=== PATIENT | female | born 1950 | race Caucasian/White ===

== ENCOUNTER → 2016-11-23 | Outpatient (CLI) | payer OTHER ==
[~2016-11-23] MED LIST: ACET-1311 PO; ANAS1TAB19 PO; ASPI81TA25 PO; ATOR10TA88 PO; CALCTAB5 PO; CLOP1TAB15 PO; GABA400C PO; LISI40TA PO; METF-383 PO; METO50TA7 PO; MULT-580; NIAC1TAB52 PO; PIOG1TAB25 PO; [UNRECOGNIZED DRUG - CODE] PO
[2016-11-23 12:55] VITALS: BP 168/71; PULSE 58; TEMP 37.1; O2SAT 93
--- NOTE | 2016-11-23 14:23 | Radiation Oncology Follow-Up ---
Radiation Oncology Follow-Up Date of Visit Nov 23, 2016. Reason For Visit Annual follow-up Radiation Completion Date finished 04-12-2014 Diagnosis (1) Breast cancer, stage 2 Status: Resolved Onset Date: 09/11/2013 Stage: ll Permanent Comment: Self detected right breast mass Status post biopsy 09/11/2013 revealing invasive ductal carcinoma Status post right partial mastectomy and sentinel lymph node biopsy 10/19/2013 Stage [id number] Systemic chemotherapy Status post completion of radiation therapy 04/12/2014 received 6120 cGy Last Edited By: Micki Rivero on Nov 19, 2014 15:03 Interim History She's been doing well over this past year. She has noted no changes to her breast. There've been no masses or tenderness no change of the axilla. She has noticed no swelling of her arm. She is up-to-date on mammography. She had a PET scan 08/30/2016 showed stable tiny pulmonary nodules, appearing to representing granulomas. Mediastinal lymph node has increased size since the previous examination however, the patient has had interim mediastinal internal ostomy and coronary artery bypass graft. This increase in lymphadenopathy could be reflective to this process. Continue follow-up. She had a mammogram on 09/08/2016. This showed no mammographic evidence of malignancy bilaterally recheck in 12 months. BI-RADS Category 2. She did undergo an aortic valve replacement. She has recuperated well post operatively. She unfortunately continues to have dyspnea. She stated that the surgery was not as good of a success as she had hoped for. Allergies Coded Allergies: Hydrochlorothiazide w/Triamterene (Unverified Allergy, Intermediate, FACIAL EDEMA, 10/12/13) Simvastatin (Verified Allergy, Mild, 07/25/09) Sulfa Drugs (Verified Allergy, Mild, 07/25/09) White Fish (Verified Allergy, Mild, 12/26/06) Home Medications Scheduled Anastrozole (Arimidex), 1 MG PO DAILY Aspirin (Aspir-Low), 1 TAB PO DAILY Atorvastatin (Lipitor), 10 MG PO HS Calcium (Caltrate), 600 MG PO DAILY Gabapentin (Neurontin), 400 MG PO TID Lisinopril (Zestril), 40 MG PO DAILY Metformin Hcl (Glucophage), 850 MG PO TID Metoprolol Succ (Toprol Xl) (Toprol-Xl), 50 MG PO BID Multiple Vitamins W/ Minerals (Hair/Skin/Nails), DAILY Niacin (Antihyperlipidemic) (Niacin Er), 250 MG PO HS Pioglitazone Hcl (Pioglitazone Hcl), 15 MG PO DAILY Torsemide (Demadex), 5 MG PO DAILY Scheduled PRN Acetaminophen (Tylenol), 650 MG PO Q4H PRN for Pain Review of Systems Gastrointestinal: Symptoms: WNL Oral: Symptoms: No Problems Respiratory: Symptoms: SOB With Exertion Other Respiratory: No change for pt Urinary: Symptoms: Nocturia Comments: nocturia times 1 - 2 Skin: Symptoms: No Problems Breast: Right Upper Arm Measurement: 48.0 Right Mid Arm Measurement: 32.5 Right Wrist Measurement: 18.5 Left Upper Arm Measurement: 49.0 Left Mid Arm Measurement: 33.0 Left Wrist Measurement: 19.0 Arm Dominence: Right Patient Cosmetic Evaluation: Excellent Staff Cosmetic Evalaluation: Excellent Physical Exam Vital Signs Date Time Temp Pulse Resp B/P (MAP) Pulse Ox O2 Delivery O2 Flow Rate FiO2 11/23/16 12:55 37.1 58 18 168/71 93 Pain: Pain Onset: 09/11/15 Pain Duration: constant Side: Bilateral Pain Location: None Patient Pain Scale: 0 - 10 Initial Pain Intensity: 0.0 Pain Description: Sharp, Aching Additional Comments: PT three times per week Fatigue: None General Appearance: no apparent distress Eyes: normal inspection, EOMI ENT: normal ENT inspection, hearing grossly normal Neck: no adenopathy, thyroid normal Respiratory/Chest: lungs clear, no respiratory distress, no accessory muscle use Breast: Breast examination reveals well-healed incisions of the right breast. There are mild fibrous changes in the area of the incision. There are no masses or tenderness and no axillary adenopathy. Using the [place] score cosmesis she has a good outcome. Left breast showed no masses or tenderness no axillary adenopathy. Cardiovascular: regular rate, rhythm, no gallop, + systolic murmur (2/6 heard best at the aortic area) Neurologic/Psychiatric: no motor/sensory deficits, alert, normal mood/affect Skin: warm/dry Additional Studies Mammography and PET scan as reviewed above. Assessment & Plan Plan: Continue annual mammography. Continue regular follow-up with medical oncology and her primary care physician. We asked her to return to our office in 1 year. She will call if she has any questions or concerns in the interim. Total Time In Follow-Up I spent 20 minutes speaking to the patient performing examination. I said 15 minutes reviewing information in completing this note. Copy To Radha Renee MD; Devora Pinto M.D.; Howard Ingram M.D. Problem Qualifiers (1) Breast cancer, stage 2: Laterality: right Qualified Codes: C50.911 - Malignant neoplasm of unspecified site of right female breast
== END | disposition home or self-care (01) ==
LOC: C.ONC 12:39
PROVIDERS: ATTEND Physician Assistant Medical
DX: Z08 Encounter for follow-up examination after completed treatment for malignant neoplasm (principal); Z92.3 Personal history of irradiation; Z85.3 Personal history of malignant neoplasm of breast

== ENCOUNTER → 2017-01-24 | Outpatient (CLI) | payer OTHER ==
[~2017-01-24] MED LIST changes: -CLOP1TAB15 PO
--- NOTE | 2017-01-25 06:36 | PAP/PSG TECHNICIAN REPORT ---
[facility] Clam Shucking Machine Tender Polysomnogram Report Study name: None Report date: 01/25/2017 Study date: 01/24/2017 Referring Physician: Name: TORRI ECHEVARRIA Interpreting Physician: Olena Gonzalez M.D. Date of : 1950 Clam Shucking Machine Tender: JAMA Holloway. Sex: Female Age: 67 StudyType: PSG Weight: 2257 lbs 15.5 inches Height: 67 years, Height 5' 2.5" Neck Circum: BMI: 406.19 Medications: LOPRESSOR 50 MG, ACTOS 15 MG, LIPITOR 10 MG, PRINIVIL 5 MG, ARIMIDEX 1 MG, NIACIN ER 250 MG, NEURONTIN 400 MG, AMOXIL 500 MG, DEMADEX 5 MG, GLUCOPHAGE 850 MG, TYLENOL 325 MG Patient History PATIENT HAS HISTORY OF SOB, LOUD SNORING AND NOCTURIA. 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 SHE IS HERE TODAY FOR AN EVALUATION OF ASHLEY. ESS = 3 RM 7 Parameters Monitored NPSG: E1-M2, E2-M1, Fp1-M2, Fp2-M1, F3-M2, F4-M2, F4-M1, C3-M2, C4-M2, C4-M1, O1-M2, O2-M2, O2-M1, T3-M2, T4-M1, P3-M2, P4-M1, CHIN1, CHIN2, HR, EKG, Legs, PFLOW, SNOR, FLOW, CFLOW, Tidal Volume, THOR, ABDO, SpO2, PLTH, CPRESS, ETCO2 Wave, ETCO2, pH Sleep Architecture Sleep Stages Time at Lights Off 10:21:33 PM STAGES Time (min.) TST (%) Time at Lights On 5:13:33 AM Wake 88.0 -- Total Recording Time (TRT) 411.50 min. N1 16.5 5 Total Sleep Period (TSP) 355.0 min. N2 242.5 75 Total Sleep Time (TST) 323.5min. N3 8.5 3 Awake Time 88.0 min. REM 56.0 17 Wake after Sleep Onset 42.5 min. Sleep Efficiency (SE) 79 % Sleep Onset Latency (CHAIM) 46.0 min. Number of Stage 1 Shifts None Awakenings 19 Stage Changes 80 Number of REM periods 4 REM 56.0 17 REM Latency 63.0 min. NREM 267.5 83 Body Position Analysis Supine Right Left Side Prone Vertical Total Sleep Time (min.) 45.0 0.0 323.5 323.50 0.0 0.0 Total Sleep Time (%) 0% 0% 100% 100 0% N/A% Total Sleep Time REM (min.) 0.0 0.0 56.0 None 0.0 0.0 Total Sleep Time NREM (min.) 0.0 0.0 267.5 None 0.0 0.0 Intermittent Wake (min.) 45.0 0.0 43.0 None 0.0 0.0 Total Sleep Period (%) 0% None None None None None Arousals Myoclonus (PLM) * Events Count Index Events Count Index Spontaneous 43 8 Events Awake (PLMW) 55 37.5 Respiratory 5 0.9 Events Asleep w/ Arousal (PLMA) 2 0.4 PLM 2 0 Events Asleep w/o Arousal (PLMS) 29 5.4 Snoring 5 1 Total Asleep 31 5.7 Total 55 10 Total 86 13 Respiratory Analysis * CA OA MA CH H RERA Total Count 0 0 0 0 45 1 45 Index 0.0 0.0 0.0 0 8.3 0 8.5 Mean Duration 0.0 0.0 0.0 0.00 17.4 16.4 17.4 Longest Duration 0.0 0.0 0.0 0.00 0.0 16.4 32.5 Respiratory Event Summary Total Supine ~Supine Right Left Prone REM NREM Apneas Count 0 N/A 0 N/A 0 N/A 0 0 Index 0.0 N/A 0 N/A 0.0 N/A 0 0 Hypopneas (4% Desat) Count 45 N/A 45 N/A 45 N/A 32 13 Index 8.3 N/A 8 N/A 8.3 N/A 34.3 2.9 Apneas & All Hypopneas Count 45 N/A 45 N/A 45 N/A 32 13 Index 8.3 N/A 8 N/A 8 N/A 34.3 2.9 Respiratory Events (Gas And Oil Checker+All Hyp+RERA) Count 45 N/A 46 N/A 46 N/A 32 13 Index 8.5 N/A 9 N/A 8.5 N/A 34.3 3.1 Respiratory Related Arousal Count 5 N/A 5 N/A 5 N/A 2 3 Index 0.9 N/A 1 N/A 1 N/A 2 1 Snoring Analysis Supine Right Left Prone REM NREM Total Snore duration 3.2 min Snores count N/A N/A 212 N/A 40 172 212 Snore mean duration 0.9 Sec Snores index N/A N/A 39 N/A 42.9 38.6 39.3 TST with snoring (%) 1.0% SpO2 Analysis Total REM NREM Awake <50% 0.0 min. 0.0 min. 0.0 min. 0.0 min. 51 - 60% 0.0 min. 0.0 min. 0.0 min. 0.0 min. 61 - 70% 0.5 min. 0.0 min. 0.5 min. 0.0 min. 71 - 80% 3.2 min. 3.0 min. 0.2 min. 0.0 min. 81 - 90% 269.6 min. 37.7 min. 212.6 min. 19.4 min. 91 - 100% 137.1 min. 15.4 min. 54.2 min. 67.5 min. Average 90 88 89 92 Minimum SpO2 61 71 61 85 Desaturation Event Index 6.9 34.3 3.4 0.0 # Desat. Events below 89% 41 29 12 0 Time(%) with Saturation below 89% 22.9 5.7 15.8 1.3 Time(min.) with Saturation below 89% 93.9 23.5 64.9 5.4 Heart Rate Analysis End Tidal CO2 Analysis Min (bpm) Max (bpm) Average (bpm) TSP (mins) % of TSP Awake 59 80 68 Above 55 mmHg 0.0 0.0 NREM 57 86 66 50-55 mmHg 0.0 0.0 REM 58 84 69 45-50 mmHg 59.8 18.5 Overall 57 86 67 40-45 mmHg 257.2 79.5 35-40 mmHg 6.0 1.9 30-35 mmHg 0.5 0.1 Average ETCO2 0.0 Supplemental O2 Values Minimum O2 level: None Value Start Time End Time Clam Shucking Machine Tender Comments Ms. Echevarria slept in the left and supine positions. PVC's noted. Leg movements noted. No bruxism noted. Snoring was noted and scored as a 3 on a scale of 1 through 5. (0=no snoring, 5=snoring loud enough to be heard through a closed door or down the henriquez way) Ms. Echevarria awoke to use the restroom 0 times during the night. Ms. Echevarria stated I did not sleep as well as I do when I am in my own bed. The final report will be interpreted and signed by a sleep physician. The completed physician report will then be placed in the patient medical record. Therapy (cm H2O) 0 TIB (min.) 411.5 TST (min.) 323.5 Sleep Onset (min.) 46.0 REM Onset From Sleep (min.) 63.0 Sleep Efficiency % 79 Wakefulness (%) 21 Wakefulness (min.) 88.0 NREM 1 (%) 5 NREM 1 (min.) 16.5 NREM 2 (%) 75 NREM 2 (min.) 242.5 NREM 3 (%) 3 NREM 3 (min.) 8.5 REM (%) 17 REM (min.) 56.0 # Arousals 55 Arousal Index 10 # Snore 212 Snore Index 39.3 AHI 8.3 AHI Supine N/A AHI Non-Supine 8 NREM AHI 2.9 REM AHI 34.3 RDI 8.5 # Obstructive Apnea 0 # Central Apnea 0 # Mixed Apnea 0 # Hypopneas 45 RERAs 1 Total Respiratory Events 46 Time Below SpO2 89% (min.) 88.4 Mean NREM SpO2 (%) 89 Mean REM SpO2 (%) 88 Mean Sleep SpO2 (%) 89 Min NREM SpO2 (%) 61 Min REM SpO2 (%) 71 Position Supine (min.) 45.0 Position Non-supine (min.) 323.5 LM Index Sleep 5.7 LM Index NREM 6.7 LM Index REM 1.1 Mean Heart Rate (bpm) 67 Min Heart Rate (bpm) 57
--- NOTE | 2017-02-04 08:34 | POLYSOMNOGRAPH REPORT ---
REFERRING PERSON: Dr. Connie Gonzalez. SENIOR COPYWRITER: Michael Carvalho. Ms. Johnson is a 67-year-old female with loud snoring and nocturia. She also has daytime sleepiness. 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 Her O'Brien sleepiness scale score on the evening of this study is 3. Following the technical and digital specifications of the [place] [employer] (AASM) a standard diagnostic polysomnogram was performed monitoring EEG, EOG, EMG (chin and leg deviations), oxygen saturation, body position, digital video, respiratory effort and airflow. The sleep Stage and event scoring was based on the AASM Manual for the Scoring of Sleep and Associated Events 2007 edition. Apneas are defined as a drop in the peak thermal sensor excursion by >90% of baseline for at least 10 seconds. Hypopneas were scored using the 4% oxygen desaturation rule (4A-Medic[employer]) and a decrease in the nasal pressure excursions by >30% of baseline for at least 10 seconds. Respiratory effort-related arousal (RERA's) is defined as a sequence of breaths lasting at least 10 seconds characterized by increasing respiratory effort or flattening of the nasal pressure waveform leading to an arousal from sleep when the sequence of breaths does not meet criteria for an apnea or hypopnea. Apnea Hypopnea index (AHI) is defined as the number of apneas and hypopneas occurring in an hour of sleep. Respiratory disturbance index (RDI) is defined as the number of apneas, hypopneas, and RERA's occurring in an hour of sleep. Ms. Bailey total sleep period time was 355 minutes. Total sleep time was 323.5 minutes. Sleep efficiency was 79%. Latency to sleep onset was 46 minutes with wake after sleep onset of 42.5 minutes. Total non-REM sleep time was 267.5 minutes. She spent 5% of that time in N1 sleep, 75% in N2 sleep and 3% in N3 sleep. REM latency was 63 minutes. Total REM sleep time was 56 minutes or 17% of total sleep time. There were 55 cortical arousals from sleep. Forty-three of these arousals were spontaneous, 5 were due to respiratory events, 2 due to periodic limb movements of sleep and 5 were due to snoring. There were 31 periodic limb movements noted on this test. Limb movement index was 5.7. Limb movement with arousal index was 0.4. There were no central, obstructive or mixed apneas on this test; however, there were 45 hypopnea. Apnea-hypopnea index was 8.3 consistent with mild sleep apnea. REM AHI was 34.3. 212 snoring events were recorded. Total sleep time with snoring was only 1%. Mean saturation was borderline low at 90%. Saturations were as low at 78%. Minimal desaturation recorded 61%, but this was artifact. Saturations were less than 89% for 93.9 minutes of recorded time. This is significant nocturnal hypoxemia. PVCs were noted on EKG monitoring. Heart rates during sleep ranged from a low of 57 beats per minute to a high of 86 beats per minute. End-tidal CO2 was recorded on this test. End-tidal CO2s were between 45 and 50 mmHg for 18.5% of total sleep period time, between 40 and 45 mmHg for 79.5%, between 35 and 40 mmHg for 1.9% and between 30 and 35 mmHg for 0.1% of total sleep period time. IMPRESSION AND PLAN: 67-year-old female with evidence of mild sleep apnea, severe in REM sleep and significant nocturnal hypoxemia on this study. 1. This patient would likely benefit from positive airway pressure therapy. It would in all likelihood improve both apnea and hypoxemia. She should return to the sleep lab for a full night titration and then based on those results be started on equipment at home. A download from her machine can be reviewed in 1 month both to check compliance as well as AHI and further pressure adjustments can occur at that time. 2. Alternatively, this patient could be started on an auto titrating CPAP with pressures of 5-15 cm. A download from her machine can be reviewed in 1 month and then she could be set to optimal pressure. An NPO on optimal pressure can ensure that her hypoxemia resolves with CPAP alone. 3. Should this patient be unwilling or unable to tolerate CPAP therapy, she could be referred to ear, nose and throat or oral surgery/dental medicine (if appropriate) to discuss alternative treatments for sleep disorder breathing. HELADIO
== END | disposition home or self-care (01) ==
LOC: C.NEUR 20:00
PROVIDERS: ATTEND Family Medicine
DX: G47.30 Sleep apnea, unspecified (principal); G47.10 Hypersomnia, unspecified; R06.83 Snoring; E66.01 Morbid (severe) obesity due to excess calories

== ENCOUNTER 2018-11-03 06:18 | Inpatient (IN) ==
--- NOTE | 2018-10-03 10:03 | Anesthesiology Consultation ---
Date of Service October 03, 2018 Assessment & Plan (1) Encounter for pre-operative examination: Chart Review Chart Review: Acceptable Risk for Surgery and Patient seen in Pre Admission Testing Consults Requested none Patient was last seen by Dr. Ratliff (Cardiology) in 05/2018. Per note from that visit, patient was stable but needed to continue to remain active and make good dietary choices. Patient to return there in 6 months (11/2018). Teaching & Discussion Pre-Anesthesia Teaching/Discussion Notes: Instructed NPO after midnight before surgery, except medications with 15 cc of water. Medication instructions provided according to the PAT guidelines. History Surgery Operation Date: 11/03/18 09:50 Proposed Procedures p Right Reverese Total Shoulder Arthroplasty - Juan Prado, Height/Weight Height: 5 ft 2 in Weight: 116.9 kg Allergies Allergy/AdvReac Type Severity Reaction Status Date / Time Dyazide Allergy Intermediate FACIAL Unverified 10/12/13 09:42 EDEMA hydrochlorothiazide Allergy Intermediate FACIAL Verified 09/21/18 10:31 EDEMA,REDNESS triamterene Allergy Intermediate FACIAL Verified 09/21/18 10:31 EDEMA,REDNESS Fish Containing Products Allergy Mild Hives Verified 09/21/18 10:31 simvastatin Allergy Mild PAIN ALL Verified 09/21/18 10:31 OVER Sulfa (Sulfonamide Allergy Mild ITCHY Verified 09/21/18 10:31 Antibiotics) BLOTCHY Medications Home Medications Medication Instructions Recorded Confirmed Last Taken acetaminophen [Tylenol] 650 mg PO Q6H PRN 09/21/18 09/21/18 Unknown anastrozole [Arimidex] 1 mg PO QPM 09/21/18 09/21/18 Unknown aspirin [Aspir-81] 81 mg PO QPM 09/21/18 09/21/18 Unknown atorvastatin 10 mg PO HS 09/21/18 09/21/18 Unknown calcium carbonate [Calcium 600] 600 mg PO BID 09/21/18 09/21/18 Unknown cyanocobalamin (vitamin B-12) 1,000 mcg SUBLINGUAL HS 09/21/18 09/21/18 Unknown gabapentin 400 mg PO TID 09/21/18 09/21/18 Unknown lisinopril 5 mg PO QPM 09/21/18 09/21/18 Unknown metformin 850 mg PO TID 09/21/18 09/21/18 Unknown metoprolol tartrate 50 mg PO BID 09/21/18 09/21/18 Unknown niacin 250 mg PO HS 09/21/18 09/21/18 Unknown torsemide [Demadex] 5 mg PO QPM 09/21/18 09/21/18 Unknown Past Medical History Medical History Breast cancer RIGHT [id number] AND CHEMO 2016 Diabetes mellitus, type 2 Hx of supraventricular tachycardia HX ABLATION DONE -2015 NO ISSUES SINCE Hyperlipidemia Hypertension Neuropathy LOWER EXTREMITIES Obesity Osteoarthritis SOB (shortness of breath) on exertion Seizure disorder H/O LEFT SIDE GOING NUMB YEARS AGO, NONE SINCE STARTING GABAPENTIN Severe aortic stenosis 11/15/17 ECHO: DIAMOND 1.0cm^2, Ao mean PG 20.3 mmHg s/p AVR Sleep apnea CPAP HS Past Family History Family History Mother Family history of diabetes mellitus Past Surgical History Surgical History History of cardiac cath 2016, NO INTERVENTION History of cardiac radiofrequency ablation 2016 History of section History of tooth extraction WISDOM TEETH History of vascular access device PLACEMENT AND REMOVAL Hx of lumpectomy RIGHT WITH NODE BIOPSY-2013 Numerous attempts at intubation with both MAC and Fiore blades without success S/P AVR (aortic valve replacement) 2016 @ [facility] [place] 11/15/17 ECHO: DIAMOND 1.0cm^2, Ao mean PG 20.3 mmHg Past Anesthesia History No Hx of Anesthesia Complications, Difficult Airway and No Family Hx of Anesthesia Complications History of PONV Yes (Once after breast lumpectomy) Motion Sickness Screening History of Motion Sickness: No Social History Smoking Status: Never smoker Do You Dip or Chew Tobacco: No Hx Alcohol Use: No Hx Substance Use: No substance use type: does not use Exercise / Class Metabolic Activity III < 4 Walking/Shop/Light housework (Gets SOB, but all workups have been negative ("other than i'm fat, old, and my valve still doesn't work great"), Able to slowly climb stairs but has to stop and catch breath. Denies CP. ) Review of Systems Patient denies chest pain, reflux, cough, wheezing, palpitations. +SOB/GARCIA +Joint Pain (Shoulders, back) Physical Exam Vital Signs BP: 146/62 P: 68 R: 16 T: 97.9 SPO2: 98% on RA Constitutional + morbidly obese ENMT Thyromental Distance: > or= 3.5 Finger Breadths (3.5) Mallampati Class: I Neck normal visual inspection and + thick neck; neck extension not limited Respiratory normal respiratory effort Auscultation: lungs clear to auscultation bilaterally Cardiovascular Rate/Rhythm: regular rate and regular rhythm Heart Sounds: + murmur (3/6 murmur heard best over aortic area and radiates into neck) Neurologic moves all extremities Psychiatric Orientation: alert and oriented x 3 Testing Electrocardiogram Date: 06/05/18 Findings: + NSR @ (66) Septal infarct (cited on or before 06/16/17) When compared with ECG of 06/16/17, non-specific change in ST segment in inferior leads. Chest X-Ray Date: 10/03/18 Findings: + NAD and + cardiomegaly (Mild) FINDINGS: Findings of a median sternotomy. Mild stable cardiomegaly. Lungs are considered clear. There are degenerative changes thoracic spine. IMPRESSION: Mild cardiomegaly. No acute process. Echocardiogram Date: 11/15/17 EF: 60-64% Other Findings: + diastolic dysfunction (mildly abnormal (Grade I)) There is an aortic valve bioprosthetic present. DIAMOND 1.0cm^2, Ao mean PG 20.3 mmHg The aortic valve prosthesis systolic gradients are abnormal for this type prosthesis suggesting obstruction. Significant aortic valve prosthesis regurgitation is absent. The proximal ascending thoracic aorta is borderline enlarged. The LV wall thickness is moderately increased (concentric). There is moderate mitral annular calcification. The mitral valve leaflets are mildly calcified. Moderate tricuspid regurgitation is present. Mild mitral regurgitation is present. Mild pulmonary hypertension. Other Testing Carotid duplex report 12/2017: Right carotid artery duplex examination indicates evidence of less than 50% stenosis of the internal carotid artery. Left carotid artery duplex examination indicates evidence of less than 50% stenosis of the internal carotid artery. Laboratory Results 10/03/18 11:35 10/03/18 11:23 Blood Type B Positive 10/03/18 11:35 Antibody Screen NEGATIVE 10/03/18 11:35 PT 10.5 Seconds (9.0-12.0) 10/03/18 11:35 INR 1.0 (0.9-1.1) 10/03/18 11:35 APTT 23.9 Seconds (21.0-31.0) 10/03/18 11:35
--- NOTE | 2018-10-03 10:05 | PAT Medication Instructions ---
Medication Instructions Date of Service October 03, 2018 Home Medications acetaminophen [Tylenol] 650 mg PO Q6H PRN anastrozole [Arimidex] 1 mg PO QPM aspirin [Aspir-81] 81 mg PO QPM atorvastatin 10 mg PO HS calcium carbonate [Calcium 600] 600 mg PO BID cyanocobalamin (vitamin B-12) 1,000 mcg SUBLINGUAL HS gabapentin 400 mg PO TID lisinopril 5 mg PO QPM metformin 850 mg PO TID metoprolol tartrate 50 mg PO BID niacin 250 mg PO HS torsemide [Demadex] 5 mg PO QPM ASK your prescriber and surgeon anastrozole [Arimidex] 1 mg PO QPM STOP taking 24 hours before surgery niacin 250 mg PO HS DO NOT take the morning of surgery calcium carbonate [Calcium 600] 600 mg PO BID metformin 850 mg PO TID Take morning of surgery With a small sip of water, OTHERWISE NOTHING TO EAT OR DRINK AFTER MIDNIGHT: acetaminophen [Tylenol] 650 mg PO Q6H PRN (okay to take up to 4 hours prior to surgery if needed) gabapentin 400 mg PO TID metoprolol tartrate 50 mg PO BID Take evening before surgery acetaminophen [Tylenol] 650 mg PO Q6H PRN (if needed) aspirin [Aspir-81] 81 mg PO QPM atorvastatin 10 mg PO HS calcium carbonate [Calcium 600] 600 mg PO BID cyanocobalamin (vitamin B-12) 1,000 mcg SUBLINGUAL HS gabapentin 400 mg PO TID lisinopril 5 mg PO QPM metformin 850 mg PO TID metoprolol tartrate 50 mg PO BID torsemide [Demadex] 5 mg PO QPM Other Notes If you have any questions please call us at [phone] or [phone] or [phone] or [phone]
--- NOTE | 2018-10-03 12:03 | XRay Report ---
XR chest Pre-admission PA/Lat CLINICAL HISTORY: pat preoperative evaluation COMPARISON STUDY: 12/27/2013 FINDINGS: Findings of a median sternotomy. Mild stable cardia megaly. Lungs are considered clear. The re are degenerative changes thoracic spine. IMPRESSION: Mild cardiomegaly. No acute process. The above report was generated using voice recognition software. It may contain grammatical, syntax or spelling errors. Electronically signed by: Damian Juarez M.D. 10/03/2018 12:01 PM
[2018-10-03 12:08] LABS: Basophils # (auto) 0.05 K/uL (0-0.2); Basophils % (auto) 0.6 %; Eosinophils # (auto) 0.55 K/uL (0-0.5); Eosinophils % (auto) 6.4 %; Hemoglobin 12.5 g/dL (12.0-16.0); Immature Granulocytes # (auto) 0.01 K/uL (0.00-0.02); Immature Granulocytes % (auto) 0.1 %; Lymphocytes # (auto) 1.47 K/uL (1.2-3.4); Lymphocytes % (auto) 17.2 %; Mean Corpuscular Hgb Conc 32.1 g/dL (32-36); Mean Corpuscular Volume 88.8 fL (80-100); Mean Platelet Volume 9.9 fL (7.4-10.4); Monocytes # (auto) 0.54 K/uL (0.11-0.59); Monocytes % (auto) 6.3 %; Neutrophils # (auto) 5.92 K/uL (1.4-6.5); Neutrophils % (auto) 69.4 %; Platelet Count 255 K/uL (130-400); RDW Coefficient of Variation 13.9 % (11.5-14.5); RDW Standard Deviation 45.1 fL (36.4-46.3); Red Blood Count 4.39 M/uL (4.2-5.4); White Blood Count 8.54 K/uL (4.8-10.8)
[2018-10-03 12:14] LABS: BUN Creatinine Ratio 19.7 (10-20); Calcium 9.6 mg/dl (8.5-10.1); Creatinine Clr Calc Pharmacy 94.8 ml/min; Est GFR (African American) 103.2; Est GFR (Non-African American) 89.1; Potassium 4.1 mmol/L (3.5-5.1)
[2018-10-03 12:22] LABS: Partial Thromboplastin Ratio 0.9; Partial Thromboplastin Time 23.9 Seconds (21.0-31.0); Prothrombin Time 10.5 Seconds (9.0-12.0)
--- NOTE | 2018-10-31 15:33 | History & Physical Report ---
Date of Service October 31, 2018 Assessment & Plan (1) Avascular necrosis of head of humerus: We will proceed with a right reverse shoulder arthroplasty. Postoperatively she will be placed in an arm sling and kept overnight for postop medical management. She plans to use [employer] upon discharge. 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 We treated her conservatively. Initially did well but unfortunately she is been having more more pain. Follow-up x-rays show avascular necrosis and flattening of the right proximal humerus. She is constant pain in the shoulder. She is unable to sleep at night. She has elected proceed with a right reverse shoulder arthroplasty. Allergies Allergy/AdvReac Type Severity Reaction Status Date / Time Dyazide Allergy Intermediate FACIAL Unverified 10/12/13 09:42 EDEMA hydrochlorothiazide Allergy Intermediate FACIAL Verified 09/21/18 10:31 EDEMA,REDNESS triamterene Allergy Intermediate FACIAL Verified 09/21/18 10:31 EDEMA,REDNESS Fish Containing Products Allergy Mild Hives Verified 09/21/18 10:31 Sulfa (Sulfonamide Allergy Mild ITCHY Verified 09/21/18 10:31 Antibiotics) BLOTCHY simvastatin AdvReac Mild PAIN ALL Verified 10/30/18 14:41 OVER Home Medications Home Medications Medication Instructions Recorded Confirmed Type acetaminophen [Tylenol] 650 mg PO Q6H PRN 09/21/18 09/21/18 History anastrozole [Arimidex] 1 mg PO QPM 09/21/18 09/21/18 History aspirin [Aspir-81] 81 mg PO QPM 09/21/18 09/21/18 History atorvastatin 10 mg PO HS 09/21/18 09/21/18 History calcium carbonate [Calcium 600] 600 mg PO BID 09/21/18 09/21/18 History cyanocobalamin (vitamin B-12) 1,000 mcg SUBLINGUAL HS 09/21/18 09/21/18 History gabapentin 400 mg PO TID 09/21/18 09/21/18 History lisinopril 5 mg PO QPM 09/21/18 09/21/18 History metformin 850 mg PO TID 09/21/18 09/21/18 History metoprolol tartrate 50 mg PO BID 09/21/18 09/21/18 History niacin 250 mg PO HS 09/21/18 09/21/18 History torsemide [Demadex] 5 mg PO QPM 09/21/18 09/21/18 History Past Med/Surg History Medical History Breast cancer RIGHT [id number] AND CHEMO 2015 Diabetes mellitus, type 2 Hx of supraventricular tachycardia HX ABLATION DONE -2015 NO ISSUES SINCE Hyperlipidemia Hypertension Neuropathy LOWER EXTREMITIES Obesity Osteoarthritis SOB (shortness of breath) on exertion Seizure disorder H/O LEFT SIDE GOING NUMB YEARS AGO, NONE SINCE STARTING GABAPENTIN Severe aortic stenosis 11/15/17 ECHO: DIAMOND 1.0cm^2, Ao mean PG 20.3 mmHg s/p AVR Sleep apnea CPAP HS Surgical History History of cardiac cath 2015, NO INTERVENTION History of cardiac radiofrequency ablation 2015 History of section History of tooth extraction WISDOM TEETH History of vascular access device PLACEMENT AND REMOVAL Hx of lumpectomy RIGHT WITH NODE BIOPSY-2013 Numerous attempts at intubation with both MAC and Fiore blades without success S/P AVR (aortic valve replacement) 2015 @ [facility] [place] 11/15/17 ECHO: DIAMOND 1.0cm^2, Ao mean PG 20.3 mmHg Family History Mother Family history of diabetes mellitus Social History Preferred Language: Gabonese Communication Ability: Effective Media Consultant Required: No Beliefs That Will Affect Care: None Current Living Situation: Alone Other Information That Helps Us Care for You: No Feels Safe at Home: Yes Safety Concerns: Feels Safe At This Time Smoking Status: Never smoker Do You Dip or Chew Tobacco: No Second Hand Exposure: No Hx Alcohol Use: No Hx Substance Use: No Review of Systems All systems reviewed & are unremarkable except as noted in HPI & below Physical Exam Constitutional: WD/WN, vitals as above Eyes: PERRL, conjunctivae normal, anicteric sclerae ENMT: external ear and nose normal, oropharynx normal Neck: trachea midline, no thyromegaly Respiratory: normal respiratory effort Cardiovascular: RRR, no murmur, no edema Gastrointestinal (Abdomen): normal bowel sounds, soft, nontender, no hepatosplenomegaly Musculoskeletal: Physical examination of the right shoulder reveals decreased range of motion and significant weakness. There is tenderness palpation along the anterior glenohumeral joint line. The right upper extremity is neurovascularly intact. Psychiatric: A+Ox3, euthymic affect Results & Data Diagnostic Findings Radiographs of the right shoulder show complete collapse of the humeral head with obvious deformity of the greater and lesser tuberosities.
[~2018-11-03 06:18] MED LIST changes: -ACET-1311 PO; +ACETAMINOPHEN 500 MG TAB PO SCH; -ANAS1TAB19 PO; -ASPI81TA25 PO; -ATOR10TA88 PO; -CALCTAB5 PO; +CEFAZOLIN 2000MG 2,000 MG/15 ML SYR IV SCH; +FAMOTIDINE 20 MG TAB PO SCH; -GABA400C PO; +GABAPENTIN 300 MG PO SCH; -LISI40TA PO; +LR 15ML/HR IV SCH; +LR 500ML BOLUS IV SCH; +LR 60ML/HR IV SCH; -METF-383 PO; -METO50TA7 PO; -MULT-580; -NIAC1TAB52 PO; -PIOG1TAB25 PO; +ROPIVACAINE 0.5% HCL/PF 150 MG, BUPIVACAINE 0.5% MPF 30 ML, EPINEPHrine 30MG/30ML (OR U... INFIL SCH; +TRANEXAMIC ACID 1,000 MG **IV Pre-op IV SCH; -[UNRECOGNIZED DRUG - CODE] PO
--- OUTSIDE RECORDS SUMMARY | 2018-11-03 06:23 | External Medical Summary | Continuity of Care Document ---
:1950 Author Name Karli Garza, Provider Address Unavailable Unavailable , Care Team Providers Name Role Phone Regan [email or web address] REGAN FUENTES M.D. Unavailable Unavailable Unavailable Unavailable Unavailable Problems Active medical history not documented Allergies and Adverse Reactions Allergy history not documented Medications Medications not documented Procedures Procedures not documented Immunizations Immunizations not documented Plan of Treatment Planned Observations Planned Goals not documented Results No Known Results Results not documented
[2018-11-03] MEDS ORDERED: TRANEXAMIC ACID 1,000 MG **IV Intra-op IV SCH (06:30)
[2018-11-03] MEDS ORDERED: BUPIVACAINE 0.5 % 5 MG/1 ML PF 10ML VIAL ONE (06:31)
--- NOTE | 2018-11-03 06:51 | History & Physical Bridge Note ---
Date of Service November 03, 2018 History & Physical Bridge Note I have examined the patient, reviewed the History & Physical and in the interval since the performance of the History & Physical I have noted the following changes of clinical significance: no changes noted
[2018-11-03] MEDS ORDERED: PROPOFOL IV EMULSION 10 MG/ML 20 ML VIAL IV ONE (06:54)
[2018-11-03] MEDS ORDERED: ETOMIDATE 2 MG/ML 20 ML VIAL IV ONE (06:54)
[2018-11-03] MEDS ORDERED: LIDOCAINE HCL 2% 2 ML VIAL/AMP(20MG/ML) INFIL ONE (06:54)
[2018-11-03] MEDS ORDERED: ONDANSETRON INJ 2 MG/ML 2 ML VIAL ONE (06:54)
[2018-11-03] MEDS ORDERED: MIDAZOLAM HCL 1 MG/ML 2ML VIAL ONE ×2 (06:55→07:05)
[2018-11-03] MEDS ORDERED: fentaNYL citrate 100 MCG/2 ML VIAL ONE (06:55)
[2018-11-03] MEDS ORDERED: ACETAMINOPHEN 1000 MG/100 ML IV IV ONE (06:57)
[2018-11-03] MEDS ORDERED: fentaNYL citrate 100 MCG/2 ML VIAL IV PRN (06:58)
[2018-11-03] MEDS ORDERED: ATROPINE SULFATE 0.1 MG/ML 10ML SYR IV PRN (06:58)
[2018-11-03] MEDS ORDERED: ONDANSETRON INJ 2 MG/ML 2 ML VIAL IV PRN ×2 (06:58→10:39)
[2018-11-03] MEDS ORDERED: HYDROmorphone INJ 1 MG/ML SYRINGE IV PRN (06:58)
[2018-11-03] MEDS ORDERED: PHENYLEPHRINE 100MCG/ML 5ML SYR IV PRN (06:58)
[2018-11-03] MEDS ORDERED: ePHEDrine sulfate 50 MG/ML AMP IV PRN (06:58)
[2018-11-03] MEDS ORDERED: POVIDONE-IODINE OP SOLN 30 ML BTL ONE (07:03)
[2018-11-03] MEDS ORDERED: ORTHO JOINT ANESTHETIC ONE (07:03)
[2018-11-03] MEDS ORDERED: ePHEDrine sulfate 50 MG/ML AMP ONE (09:24)
[2018-11-03] MEDS ORDERED: ROCURONIUM BROMIDE 10 MG/ML 5 ML VIAL ONE (09:24)
[2018-11-03] MEDS ORDERED: SUCCINYLCHOLINE CHLORIDE 20 MG/ML 10 ML VIAL ONE (09:24)
--- NOTE | 2018-11-03 10:11 | Operative Report ---
Post Operative Report Pre & Post Diagnosis Operation Date: 11/03/18 08:40 Pre-Op Diagnosis: Right Shoulder posttraumatic avascular necrosis Post-Op Diagnosis: Right Shoulder posttraumatic avascular necrosis Procedure Operation Date: 11/03/18 08:40 Actual Procedures p Right Reverese Total Shoulder Arthroplasty(Right) - Juan Prado DO Surgeon Juan Prado DO First Press Operator Juan Tuttle PAC Estimated Blood Loss 150 Findings Consistent with Post-Op Diagnosis Specimens Right femoral head Complications none Disposition Disposition: Recovery Room Indications Magui is a pleasant 68-year-old female who fractured her right proximal humerus several years ago. She was treated conservatively. Unfortunately she went on to develop posttraumatic avascular necrosis. She complete collapse of her humeral head. After failing conservative treatment, she elected to proceed with a right reverse shoulder arthroplasty. Description of Procedure This case took about 50% longer than a standard shoulder replacement surgery. She had a lot of deformity from the fracture. A lot of soft tissue stripping had to be done to gain ligament balancing. Extra bone had to be removed from the previous fracture malunion. She also had a BMI of 47.1. Implants used: I used a [employer] Comprehensive reverse total shoulder arthroplasty system with a size 9 press fit mini humeral stem, a standard humeral tray and a +3 retentive humeral bearing, a 25 mm mini baseplate with a 6.5 mm central screw and superior and inferior locking screws, and a size 36 mm eccentric glenosphere. The patient arrived at [facility] for the above procedure. There were seen in the preoperative holding area and the operative extremity was identified and signed. They were given a preoperative antibiotic and an interscalene nerve block. They were taken back to the operating room, laid on table in supine position, and put under general anesthesia. They were then put into the beachchair position. The shoulder was then prepped and draped in sterile fashion. A timeout was done and the patient in the operative extremity was properly identified. A deltopectoral approach was used. Dissection was taken down through the fascia and the deltoid was retracted laterally and the conjoined tendon was retracted medially. The anterior shoulder was exposed. The long head of the biceps tendon was tenodesed to the upper border of the pectoralis major. The subscapularis was then released off the lesser tuberosity with a centimeter of cuff tissue remaining. The inferior capsule was released and the humeral head was dislocated. A canal finding reamer was sent down the center of the humeral canal. Sequential reaming up to a size 9 reamer was done. Off that reamer, a proximal humeral resection guide was placed. The proximal humerus was resected at 135 of inclination and 25 of retroversion. Osteophytes were then removed and the glenoid was exposed. Time was spent doing a complete capsular and labral release. The glenoid guide was then placed in the inferior aspect of the glenoid. A 3.2 mm Steinmann pin was then placed into the glenoid vault at 10 of inclination. The glenoid baseplate was then reamed. The final size 25 mm mini baseplate was then impacted in the place. A 6.5 mm central screw was then placed followed by superior and inferior locking screws. A 36 mm eccentric glenoid sphere was then impacted into place. Surrounding soft tissues were then injected with 100 cc an orthopedic pain control cocktail. The proximal humerus was then exposed. Sequential broaching of the humerus up to a size 9 broach was done. Off that broach a +3 retentive humeral tray was trialed. The shoulder was then reduced, brought through a full range of motion and felt to be stable. The shoulder was then dislocated and the broach was removed. The final size 9 mini press-fit humeral stem was then impacted into place. A +3 retentive humeral bearing was then snapped onto a standard humeral tray and the ring-lock mechanism was engaged. The humeral tray was then impacted onto the humeral stem. The shoulder was once again reduced, brought through a full range of motion and felt to be stable. The subscapularis was not read paired because of severe contraction. A dilute betadyne lavage was then done for 3 minutes. The joint was then irrigated with normal saline solution. Hemostasis was obtained. The skin was then closed with 2-0 Vicryl, 3-0V lock suture, and benjie. A soft dressing and a regular arm sling was placed. The patient was then extubated and transferred to a hospital bed. They were taken to the postanesthesia care unit in stable condition. They tolerated the procedure well. I attest to the content of the Intraoperative Record and any orders documented therein. Any exceptions are noted below.
[2018-11-03] MEDS ORDERED: HYDROmorphone INJ 0.5 MG/0.5 ML SYR IV PRN (10:39)
[2018-11-03] MEDS ORDERED: NALOXONE HCL 0.4 MG/1 ML VIAL/CARP IV PRN (10:39)
[2018-11-03] MEDS ORDERED: MAGNESIUM HYDROXIDE SUSP 30 ML UDC PO PRN (10:39)
[2018-11-03] MEDS ORDERED: BISACODYL 10 MG SUPP PR PRN (10:39)
[2018-11-03] MEDS ORDERED: METOCLOPRAMIDE HCL INJ 5 MG/ML 2 ML VIAL IV PRN (10:39)
--- NOTE | 2018-11-03 11:03 | XRay Report ---
XR shoulder RT min 2V routine CLINICAL HISTORY: Post shoulder surgery COMPARISON: 11/23/2017 DISCUSSION: There are postsurgical changes of a reverse total right shoulder arthroplasty. There is n o dislocation. There is aortic the soft tissues consistent with recent surgery. There are overlying s kin benjie. There are nonspecific increased right perihilar markings. Mild fluid overload must be co nsidered. IMPRESSION: Postsurgical changes of a reverse total right shoulder arthroplasty. Electronically signed by: Kenrick Gao M.D. 11/03/2018 11:02 AM
--- NOTE | 2018-11-03 11:08 | Anesthesiology Progress Note ---
Date of Service November 03, 2018 Anesthesia Post Procedure Vital Signs Vital Signs: Temp Pulse Pulse Resp BP Pulse Ox 11/03/18 11:00 36.4 C L 78 19 123/64 95 11/03/18 10:50 78 19 135/61 95 11/03/18 10:40 81 22 125/80 96 11/03/18 09:30 36.1 C L 86 22 168/79 H 94 11/03/18 06:49 37.3 C 82 20 199/93 H 95 Pain Intensity Right Shoulder: Pain Intensity: 3 Transfer of Care Handoff Completed per policy Notes Mental Status: alert / awake / arousable Patient Amnestic to Procedure: Yes Nausea / Vomiting: adequately controlled Pain: adequately controlled Airway Patency, RR, SpO2: stable & adequate BP & HR: stable & adequate Hydration State: stable & adequate Anesthetic Complications: no major complications apparent Notes: Pt awake, doing well, no complaints. Pt will need O2 via NC and will be monitoredin the telemetry unit
[2018-11-03] MEDS ORDERED: PHARMACY GLYCEMIC MGMT CONSULT PRN (11:51)
[2018-11-03] MEDS: SODIUM CHLORIDE 0.9% 1000ML 1,000 ML IV SCH ×2 (12:43→21:51)
[2018-11-03] MEDS ORDERED: GLUCAGON FOR INJ 1 MG VIAL IM PRN (13:15)
[2018-11-03] MEDS ORDERED: GLUCOSE 40% GEL 15 GM TUBE PO PRN (13:15)
[2018-11-03] MEDS ORDERED: GLUCOSE 10 TABS/TUBE PO PRN (13:15)
[2018-11-03] MEDS ORDERED: DEXTROSE 50% 50 ML SYRINGE IV PRN (13:15)
[2018-11-03] MEDS ORDERED: CARBOHYDRATES FOR HYPOGLYCEMIA PO PRN (13:15)
--- NOTE | 2018-11-03 13:24 | Pharmacy Report ---
Glycemic Control Consultation - Date of Service November 03, 2018 - Scope Scope: Glycemic Pharmacist consulted by Dr Tuttle on 11/03/18 for glycemic control and to write orders per [facility] inpatient glycemic control protocol - Objective Weight: 116 kg Accuchecks BSG (last 24hrs): 11/03/18 11/03/18 11/03/18 06:36 10:32 11:41 POC Glucose 169 H 153 H 179 H HbA1c: Ordered 11/04/18 am labs - Recent Pertinent Medications Outpatient Anti-diabetic Regimen: * Metformin 850mg po TID (max dose) * A1c = Labs ordered am 11/04/18 The patient is currently receiving: * Basal insulin: Lantus scale ordered for PM 11/03: BSG less than 180 0 units Lantus/BSG greater than or equal to 180 give 20 units Lantus * Correctional Insulin: Novolog Correction per scale ACHS Goal Range: Low 110 mg/dL - High 140 mg/dL Correction Factor: 20 mg/dL/unit * Prandial insulin: Per carb ratio of 1 unit per 7 grams CHO consumed * Oral Agents: Metformin on hold for now Risk Factors for Insulin Resistance: * Recent Surgery: s/p right should arthroplasty - Assessment & Plan Assessment & Plan: ASSESSMENT: * Type 2 diabetic s/p po right shoulder arthoplasty. * PMH: Breast cancer/Hyperlipidemia/HTN/Seizure disorder/severe aortic stenosis * Outpatient regimen consists of Metformin 850 mg PO TID PLAN FOR INPATIENT GLYCEMIC CONTROL: * Goal Range 110 - 140 mg/dl * Holding outpatient oral diabetes medications * Basal insulin * Lantus: Will give scaled dose this evening. If BSG less than 180 will give 0 units; If BSG is 180 or above will give 20 units * Bolus insulin * NovoLog per scale ACHS or Q6hrs while NPO * Goal Range: Low 110 mg/dL - High 140 mg/dL * Correction Factor: 20 mg/dL/unit * Nutritional / Prandial insulin per carb ratio of 1 unit per 7 grams CHO consumed * Please note that the plan above was derived based on current level of insulin resistance and hospital stress. These recommendations are appropriate for inpatient admission only. Plan of care upon discharge will need to be reassessed to avoid potential outpatient hypo/hyperglycemia. Thank you.
[2018-11-03] MEDS: ACETAMINOPHEN 500 MG TAB PO SCH ×2 (13:30→21:50)
[2018-11-03] MEDS: GABAPENTIN 400 MG CAP PO SCH ×2 (13:30→20:17)
[2018-11-03] MEDS: INSULIN ASPART 100 UNITS/ML 3 ML PEN SC SCH ×3 (13:32→20:34)
--- NOTE | 2018-11-03 14:57 | Consultation ---
Date of Consultation November 03, 2018 Assessment & Plan (1) Avascular necrosis of head of humerus: post op 11/03 R reverse TSA with Dr. 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 Ratliff Next is due in November (7) Breast cancer, stage 2: continue home meds (8) ASHLEY (obstructive sleep apnea): CPAP as at home Pt expressed to nursing that she would like to be DNR/DNI History of Present Illness Attending Physician: Juan Prado, DO History of Present Illness 68 y/o F who was admitted on 11/03 s/p R TSA with Dr. Prado. Pt is doing well post-op. Pain it not present but does have some tingling in her R hand. Tolerating PO without issue. Pt denies fever, SOB, chest pain, abd pain, n/v/c/d, LE pain. Pt states she gets LE swelling periodically at baseline. Pt states her seizure sx re lower jaw numbness and hand numbness. This is controlled with gabapentin. Allergies Allergy/AdvReac Type Severity Reaction Status Date / Time Dyazide Allergy Intermediate FACIAL Unverified 10/12/13 09:42 EDEMA hydrochlorothiazide Allergy Intermediate FACIAL Unverified 11/03/18 12:58 EDEMA triamterene Allergy Intermediate FACIAL Unverified 11/03/18 12:58 EDEMA Fish Containing Products Allergy Mild Hives Verified 11/03/18 08:24 Sulfa (Sulfonamide Allergy Mild ITCHY Verified 11/03/18 08:24 Antibiotics) BLOTCHY simvastatin AdvReac Mild PAIN ALL Verified 11/03/18 08:24 OVER Home Medications Home Medications Medication Instructions Recorded Confirmed Type acetaminophen [Tylenol] 650 mg PO Q6H PRN 09/21/18 11/03/18 History anastrozole [Arimidex] 1 mg PO QPM 09/21/18 11/03/18 History aspirin [Aspir-81] 81 mg PO QPM 09/21/18 11/03/18 History atorvastatin 10 mg PO HS 09/21/18 11/03/18 History calcium carbonate [Calcium 600] 600 mg PO BID 09/21/18 11/03/18 History cyanocobalamin (vitamin B-12) 1,000 mcg SUBLINGUAL HS 09/21/18 11/03/18 History gabapentin 400 mg PO TID 09/21/18 11/03/18 History lisinopril 5 mg PO QPM 09/21/18 11/03/18 History metformin 850 mg PO TID 09/21/18 11/03/18 History metoprolol tartrate 50 mg PO BID 09/21/18 11/03/18 History niacin 250 mg PO HS 09/21/18 11/03/18 History torsemide [Demadex] 5 mg PO QPM 09/21/18 11/03/18 History Patient History Medical History Diabetes mellitus, type 2 Hx of supraventricular tachycardia HX ABLATION DONE -2016 NO ISSUES SINCE Hyperlipidemia Hypertension Neuropathy LOWER EXTREMITIES Osteoarthritis SOB (shortness of breath) on exertion Sleep apnea CPAP HS Breast cancer RIGHT [id number] AND CHEMO 2016 Obesity Seizure disorder H/O LEFT SIDE GOING NUMB YEARS AGO, NONE SINCE STARTING GABAPENTIN Severe aortic stenosis 11/15/17 ECHO: DIAMOND 1.0cm^2, Ao mean PG 20.3 mmHg s/p AVR Surgical History History of cardiac cath 2016, NO INTERVENTION History of cardiac radiofrequency ablation 2016 History of section History of tooth extraction WISDOM TEETH History of vascular access device PLACEMENT AND REMOVAL Hx of lumpectomy RIGHT WITH NODE BIOPSY-2013 Numerous attempts at intubation with both MAC and Fiore blades without success S/P AVR (aortic valve replacement) 2015 @ [facility] [place] 11/15/17 ECHO: DIAMOND 1.0cm^2, Ao mean PG 20.3 mmHg Family History Mother Family history of diabetes mellitus Social History Preferred Language: Kiswahili Communication Ability: Effective Private Equity Associate Required: No Beliefs That Will Affect Care: None marital status: / Current Living Situation: Alone Other Information That Helps Us Care for You: No Feels Safe at Home: Yes Safety Concerns: Feels Safe At This Time Smoking Status: Never smoker Do You Dip or Chew Tobacco: No Second Hand Exposure: No Hx Alcohol Use: No Hx Substance Use: No Review of Systems Review of Systems: Pertinent positives and negatives reviewed in HPI--all others negative Physical Exam Constitutional: WD/WN, vitals as above Eyes: normal visual lozano by confrontation and + anicteric sclerae Neck: normal visual inspection and trachea midline Respiratory: normal respiratory effort, lungs clear to auscultation Cardiovascular: Rate/Rhythm: regular rate and regular rhythm Gastrointestinal (Abdomen): Inspection/Auscultation: abdomen not distended Percussion/Palpation: abdomen soft; abdomen nontender Musculoskeletal: Head/Neck/Chest: normocephalic and head atraumatic Trace LE b/l edema, peripheral pulses intact Skin: no rashes, warm and dry Neurologic: awake; not confused Speech / Cognition: normal speech Psychiatric: A+Ox3, euthymic affect Results & Data Vital Signs (Past 12 Hours) Vital Signs Temp Pulse Pulse Resp BP Pulse Ox Pulse Ox 11/03/18 13:09 73 18 107/68 95 11/03/18 12:09 79 18 100/65 93 11/03/18 11:29 36.7 C 75 18 117/61 96 95 11/03/18 11:20 78 20 115/62 97 11/03/18 11:10 76 19 127/68 95 11/03/18 11:00 36.4 C L 78 19 123/64 95 11/03/18 10:50 78 19 135/61 95 11/03/18 10:40 81 22 125/80 96 11/03/18 09:30 36.1 C L 86 22 168/79 H 94 11/03/18 06:49 37.3 C 82 20 199/93 H 95 Diagnostic Findings CXR: neg for acute
[2018-11-03] MEDS: CEFAZOLIN 2000MG 2,000 MG/15 ML SYR IV SCH ×2 (15:41→23:52)
[2018-11-03] MEDS: METOPROLOL TARTRATE 50 MG TAB PO SCH (17:28)
[2018-11-03] MEDS: DOCUSATE SODIUM 100 MG CAP PO SCH (20:18)
[2018-11-03] MEDS ORDERED: TORSEMIDE 10 MG TAB PO SCH (21:00)
[2018-11-03] MEDS ORDERED: SENNA 8.6 MG TAB PO SCH (21:00)
[2018-11-03] MEDS ORDERED: LISINOPRIL 5 MG TAB PO SCH (21:00)
[2018-11-03] MEDS ORDERED: ANASTROZOLE 1 MG TAB PO SCH (21:00)
[2018-11-03] MEDS ORDERED: ATORVASTATIN 10 MG TAB PO SCH (21:00)
[2018-11-03] MEDS ORDERED: INSULIN GLARGINE SOLOSTAR 100 UNITS/ML 3 ML PEN SC ONE (21:00)
[2018-11-04] MEDS: OXYCODONE HCL IR 5 MG TAB (IMMEDIATE RELEASE) PO PRN ×3 (00:44→10:19)
[2018-11-04] MEDS: ACETAMINOPHEN 500 MG TAB PO SCH (06:14)
[2018-11-04 07:14] LABS: Basophils # (auto) 0.02 K/uL (0-0.2); Basophils % (auto) 0.2 %; Eosinophils # (auto) 0.14 K/uL (0-0.5); Eosinophils % (auto) 1.5 %; Hematocrit (blood only) 31.9 % (37-47); Hemoglobin 10.5 g/dL (12.0-16.0); Immature Granulocytes # (auto) 0.02 K/uL (0.00-0.02); Immature Granulocytes % (auto) 0.2 %; Lymphocytes # (auto) 1.61 K/uL (1.2-3.4); Lymphocytes % (auto) 17.2 %; Mean Corpuscular Hgb Conc 32.9 g/dL (32-36); Mean Corpuscular Volume 87.4 fL (80-100); Mean Platelet Volume 9.7 fL (7.4-10.4); Monocytes # (auto) 0.71 K/uL (0.11-0.59); Monocytes % (auto) 7.6 %; Neutrophils # (auto) 6.84 K/uL (1.4-6.5); Neutrophils % (auto) 73.3 %; Platelet Count 218 K/uL (130-400); RDW Coefficient of Variation 13.9 % (11.5-14.5); RDW Standard Deviation 44.7 fL (36.4-46.3); Red Blood Count 3.65 M/uL (4.2-5.4); White Blood Count 9.34 K/uL (4.8-10.8)
--- NOTE | 2018-11-04 07:38 | Orthopedic Progress Note ---
Date of Service November 04, 2018 Assessment & Plan (1) Avascular necrosis of head of humerus: Overall she is doing very well. She is not having too much pain in the shoulder. She took an oxycodone this morning and tolerated it well. She will be seen by physical therapy this morning for range of motion exercises. She can be discharged home later today. She plans to use [employer] upon discharge. She will follow-up with orthopedics in 2 weeks. Present on Admission?: Yes Subjective Magui was seen and examined at bedside this morning. Overall she is doing very well. She is not having much pain in the right shoulder. She is happy with her progress. She has no complaints. Physical Exam Musculoskeletal: On physical examination of the right shoulder, the dressing is clean and dry. She is wearing her sling as instructed. Her radial median and ulnar nerves are checked and intact at the wrist. Her axillary nerve is not checked yet. Results & Data Vital Signs (Past 12 Hours) Vital Signs Temp Pulse Pulse Pulse Resp BP Pulse Ox 11/04/18 04:10 36.7 C 70 18 123/65 92 11/04/18 00:20 36.7 C 70 18 123/65 92 11/03/18 23:43 71 11/03/18 20:13 36.8 C 78 16 121/67 93 Laboratory Results H & H 10/03/18 11/04/18 Range/Units 11:35 06:41 Hgb 12.5 10.5 L (12.0-16.0) g/dL Hct 39.0 31.9 L (37-47) % Coagulation 10/03/18 Range/Units 11:35 INR 1.0 (0.9-1.1) Diagnostic Findings Postoperative x-rays of the right shoulder show the prosthesis to be in anatomic alignment without any evidence of fracture, dislocation, or loosening.
--- NOTE | 2018-11-04 07:40 | Discharge Summary ---
Date of Service November 04, 2018 Admission HPI Per Admitting Provider Magui is a pleasant 68-year-old female who I saw 2 years ago for a right proximal humerus fracture. We treated her conservatively. Initially did well but unfortunately she is been having more more pain. Follow-up x-rays show avascular necrosis and flattening of the right proximal humerus. She is constant pain in the shoulder. She is unable to sleep at night. She has elected proceed with a right reverse shoulder arthroplasty. Specialty Data Orthopedic H & H 10/03/18 11/04/18 Range/Units 11:35 06:41 Hgb 12.5 10.5 L (12.0-16.0) g/dL Hct 39.0 31.9 L (37-47) % Coagulation 10/03/18 Range/Units 11:35 INR 1.0 (0.9-1.1) Discharge Data Consultations 11/03/18 10:39 Consult Case Management - Discharge Planning Routine Consult Hospitalist Routine Procedures Performed Operation Date: 11/03/18 08:40 Actual Procedures p Right Reverese Total Shoulder Arthroplasty(Right) - Juan Prado DO Hospital Course (1) Avascular necrosis of head of humerus: On November 03, 2018 Magui arrived at [facility] and underwent a right reverse shoulder arthroplasty without complication. Postoperatively she was placed on the telemetry floor because of preoperative hypertension. Overall her hospital course was uneventful. On postop day #1 her H&H was stable and her pain was well controlled. The medicine team was consulted and felt that she was doing well. She was seen by physical therapy and able to do range of motion exercises. She was then discharged home with oral pain medications. She will follow-up with orthopedics in 2 weeks. Discharge Instructions Home Medications Medication Instructions Recorded Confirmed acetaminophen [Tylenol] 650 mg PO Q6H PRN 09/21/18 11/03/18 anastrozole [Arimidex] 1 mg PO QPM 09/21/18 11/03/18 aspirin [Aspir-81] 81 mg PO QPM 09/21/18 11/03/18 atorvastatin 10 mg PO HS 09/21/18 11/03/18 calcium carbonate [Calcium 600] 600 mg PO BID 09/21/18 11/03/18 cyanocobalamin (vitamin B-12) 1,000 mcg SUBLINGUAL HS 09/21/18 11/03/18 gabapentin 400 mg PO TID 09/21/18 11/03/18 lisinopril 5 mg PO QPM 09/21/18 11/03/18 metformin 850 mg PO TID 09/21/18 11/03/18 metoprolol tartrate 50 mg PO BID 09/21/18 11/03/18 niacin 250 mg PO HS 09/21/18 11/03/18 torsemide [Demadex] 5 mg PO QPM 09/21/18 11/03/18 Previous Rx's Medication Instructions Recorded oxycodone 5 - 10 mg PO Q4H PRN #40 tab 11/04/18
[2018-11-04 07:46] LABS: BUN Creatinine Ratio 22.9 (10-20); Calcium 8.6 mg/dl (8.5-10.1); Creatinine Clr Calc Pharmacy 100.3 ml/min; Est GFR (African American) 105.3; Est GFR (Non-African American) 90.9; Potassium 3.7 mmol/L (3.5-5.1)
[2018-11-04] MEDS: INSULIN ASPART 100 UNITS/ML 3 ML PEN SC SCH (08:12)
[2018-11-04] MEDS: DOCUSATE SODIUM 100 MG CAP PO SCH (08:14)
[2018-11-04] MEDS: METOPROLOL TARTRATE 50 MG TAB PO SCH (08:14)
[2018-11-04] MEDS: GABAPENTIN 400 MG CAP PO SCH (08:14)
--- NOTE | 2018-11-04 08:27 | Anesthesiology Progress Note ---
Date of Service November 04, 2018 Anesthesia Post Procedure Vital Signs Vital Signs: Temp Pulse Pulse Pulse Resp BP Pulse Ox 11/04/18 07:47 36.8 C 69 19 142/63 H 95 11/04/18 04:10 36.7 C 70 18 123/65 92 11/04/18 00:20 36.7 C 70 18 123/65 92 11/03/18 23:43 71 11/03/18 20:13 36.8 C 78 16 121/67 93 11/03/18 15:23 36.8 C 81 18 127/66 93 11/03/18 13:09 73 18 107/68 95 11/03/18 12:09 79 18 100/65 93 11/03/18 11:29 36.7 C 75 18 117/61 96 11/03/18 11:20 78 20 115/62 97 11/03/18 11:10 76 19 127/68 95 11/03/18 11:00 36.4 C L 78 19 123/64 95 11/03/18 10:50 78 19 135/61 95 11/03/18 10:40 81 22 125/80 96 11/03/18 09:30 36.1 C L 86 22 168/79 H 94 Pulse Ox 11/04/18 07:47 11/04/18 04:10 11/04/18 00:20 11/03/18 23:43 11/03/18 20:13 11/03/18 15:23 11/03/18 13:09 11/03/18 12:09 11/03/18 11:29 95 11/03/18 11:20 11/03/18 11:10 11/03/18 11:00 11/03/18 10:50 11/03/18 10:40 11/03/18 09:30 Pain Intensity Right Shoulder: Pain Intensity: 3 Transfer of Care Handoff Completed per policy Notes Mental Status: alert / awake / arousable Patient Amnestic to Procedure: Yes Nausea / Vomiting: adequately controlled Pain: adequately controlled Airway Patency, RR, SpO2: stable & adequate BP & HR: stable & adequate Hydration State: stable & adequate Anesthetic Complications: no major complications apparent Notes: POD #1. Doing well. Has been OOB and tolerating PO. No complaints. VSS
[2018-11-04] MEDS ORDERED: MULTIVITAMIN TAB PO SCH (09:00)
[2018-11-04 09:24] LABS: Estimated Average Glucose 157 mg/dl; Hemoglobin A1C 7.1 % (4.5-5.6)
--- NOTE | 2018-11-04 12:36 | Hospitalist Progress Note ---
Date of Service November 04, 2018 Assessment & Plan (1) Avascular necrosis of head of humerus: post op 11/03 R reverse TSA with Dr. Prado Son is a nurse and will be staying with her for a week, then her other son will come to stay with her. 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 Ratliff Next is due in November (7) Breast cancer, stage 2: continue home meds (8) ASHLEY (obstructive sleep apnea): CPAP as at home Pt expressed to nursing that she would like to be DNR/DNI Subjective Pt is doing well post-op. Tolerating PO without issue. Appetite was low yesterday, but has since picked up. No more RUE tingling. Pt denies fever, SOB, chest pain, abd pain, n/v/c/d, LE swelling. She is awaiting d/c. Son is a nurse and will be staying with her for a week, then her other son will come to stay with her. 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 Review of Systems Review of Systems: Pertinent positives and negatives reviewed in HPI--all others negative Physical Exam Constitutional: WD/WN, vitals as above Eyes: normal visual lozano by confrontation and + anicteric sclerae Neck: normal visual inspection and trachea midline Respiratory: normal respiratory effort, lungs clear to auscultation Cardiovascular: Rate/Rhythm: regular rate and regular rhythm Gastrointestinal (Abdomen): Inspection/Auscultation: abdomen not distended Percussion/Palpation: abdomen soft; abdomen nontender Musculoskeletal: Head/Neck/Chest: normocephalic and head atraumatic neg LE edema Skin: no rashes, warm and dry Neurologic: awake; not confused Speech / Cognition: normal speech Psychiatric: A+Ox3, euthymic affect Results & Data Vital Signs (Past 12 Hours) Vital Signs Temp Pulse Pulse Resp BP Pulse Ox 11/04/18 09:53 36.8 C 70 69 19 142/63 H 93 05/18/19 08:00 93 11/04/18 07:47 36.8 C 69 19 142/63 H 95 11/04/18 04:10 36.7 C 70 18 123/65 92
== END 2018-11-04 10:35 | disposition home health service (06) | DRG 483 ==
LOC: ASU 06:18 → 2S 10:32

== ENCOUNTER 2025-01-14 11:45 | Inpatient (IN) ==
--- NOTE | 2025-01-14 11:59 | Emergency Department Note ---
Impression & Plan Hypoxia Admission ED Provider Note HPI: History obtained from patient. The patient is a 75-year-old female with history of SVT, hypertension, diabetes, mitral valve regurgitation, presents the emergency department today with a chief complaint of shortness of breath that has been ongoing for the past 2 days. Patient states today she was feeling very short of breath to the point where she can only ambulate a short distance. Patient states she also has noticed that her bilateral lower extremities have been more swollen recently. On arrival here to the ED the patient was noted to have an oxygen saturation at 76% on room air and was placed on an oxygen mask at 10 L with good improvement. On my evaluation in room a 1 the patient is saturating at 93% on oxymask, she is mildly hypertensive but otherwise hemodynamically stable. Patient denies any chest pain, she denies any recent fever or cough. ROS: - Per HPI Differential Diagnosis: Acute CHF exacerbation, pulmonary edema, pleural effusion, PE, ACS, pneumonia, COPD, amongst other potential pathologies. *Outpatient medications and allergy history reviewed. 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 Patient maintained good oxygenation on supplemental oxygen following her initial presenting hypoxia. Lab work shows no leukocytosis, hemoglobin is stable 11.0, platelet count is normal, INR is therapeutic at 2.5, venous blood gas shows a normal pH and a normal pCO2. CMP does not show any evidence of any critical findings. Creatinine appears to be mildly elevated at 1.44 however unclear baseline as the last set of lab work is from 2019 in our system. No critical electrolyte abnormalities are noted. Troponin is negative x 1 and BNP is elevated at 417. Chest x-ray appears to show fluid overload. On my reassessment patient is resting comfortably in bed on 5 L nasal cannula oxygen, she was given a dose of IV Lasix over concern for likely CHF. I discussed the patient's presentation with the on-call admitting service for [facility] and the patient was placed for admission to the service of Dr. Connelly. Consultants/Discussions held with other healthcare providers: - Hospitalist, Dr. Connelly Disposition discussion held by myself with: -Patient * CRITICAL CARE TIME: ( 43 ) minutes - Stabilization of the patient with presenting hypoxia at 76% on room air requiring supplemental oxygen for correction, time spent at the bedside, interpretation of diagnostic studies, discussion with other providers and arrangement of admission. Diagnosis: 1. Hypoxia, acute 2. Elevated BNP, acute 3. Pulmonary edema, acute Disposition: Admission Damian Astorga DO Emergency Medicine Past Med/Surg History Problem List (Updated 01/14/25 @ 17:17 by Damian Astorga DO) Hypoxia (Acute) Acute hypoxemic respiratory failure CHF exacerbation ASHLEY (obstructive sleep apnea) Avascular necrosis of head of humerus Encounter for pre-operative examination SVT (supraventricular tachycardia) (Acute) SVT (supraventricular tachycardia) (Acute 12/27/13) Hypomagnesemia (Acute) Status post right breast lumpectomy (Acute) Hypercholesterolemia (Chronic) Seizure disorder (Chronic) Degenerative joint disease (Acute) Carotid artery stenosis (Chronic) Hypertension (Chronic) Paroxysmal supraventricular tachycardia (Chronic) Diabetes mellitus (Chronic) Hepatomegaly (Chronic) Mitral valve regurgitation (Chronic) Medical History (Updated 01/14/25 @ 17:17 by Damian Astorga DO) Obesity Severe aortic stenosis JAN 2019 HAD ECHO: DR. TRACEY- [facility] s/p AVR Breast cancer RIGHT [id number] AND CHEMO 2015 Seizure disorder H/O LEFT SIDE GOING NUMB YEARS AGO, NONE SINCE STARTING GABAPENTIN Hx of supraventricular tachycardia HX ABLATION DONE -2015 NO ISSUES SINCE Osteoarthritis Neuropathy LOWER EXTREMITIES Diabetes mellitus, type 2 Sleep apnea CPAP HS SOB (shortness of breath) on exertion Hyperlipidemia Hypertension Surgical History History of cataract surgery LEFT History of reverse total replacement of right shoulder joint S/P AVR (aortic [place] [facility] [place] [facility] [place]: DIAMOND 1.0cm^2, Ao mean PG 20.3 mmHg History of vascular access device PLACEMENT AND REMOVAL History of tooth extraction WISDOM TEETH Hx of lumpectomy RIGHT WITH NODE BIOPSY-2013 Numerous attempts at intubation with both MAC and Fiore blades without success History of section History of cardiac radiofrequency ablation 2016 History of cardiac cath 2016, NO INTERVENTION Family History Mother Family history of diabetes mellitus Denies family history of Myocardial infarction Stroke Social History Smoking Status: Never smoker Second Hand Exposure: No; Do You Dip or Chew Tobacco: No; Hx Alcohol Use: No Hx Substance Use: No Preferred Language: Cape Verdean Communication Ability: Effective Loop Tender Required: No Beliefs That Will Affect Care: None marital status: / Current Living Situation: Alone Feels Safe at Home: Yes Assistive Devices: Glasses Allergies Allergies Allergy/AdvReac Type Severity Reaction Status Date / Time Dyazide Allergy Intermediate FACIAL Unverified 12/12/19 10:36 EDEMA hydrochlorothiazide Allergy Intermediate FACIAL Verified 01/14/25 13:42 EDEMA triamterene Allergy Intermediate FACIAL Verified 01/14/25 13:42 EDEMA Fish Containing Products Allergy Mild Hives Verified 01/14/25 13:42 Sulfa (Sulfonamide Allergy Mild ITCHY Verified 01/14/25 13:42 Antibiotics) BLOTCHY simvastatin AdvReac Mild PAIN ALL Verified 01/14/25 13:42 OVER Home Meds Home Medications Medication Instructions Recorded Confirmed atorvastatin 10 mg tablet 10 mg PO HS 09/21/18 01/14/25 cyanocobalamin (vitamin B-12) 1,000 mcg sublingual HS 09/21/18 01/14/25 1,000 mcg sublingual tablet gabapentin 400 mg capsule 400 mg PO TID 09/21/18 01/14/25 turmeric 400 mg capsule 500 mg PO DAILY 02/05/19 01/14/25 alendronate 70 mg tablet 70 mg PO WK 01/14/25 01/14/25 amlodipine 5 mg tablet 2.5 mg PO QAM 01/14/25 01/14/25 aspirin 81 mg tablet,delayed 81 mg PO DAILY 01/14/25 01/14/25 release carvedilol 12.5 mg tablet 12.5 mg PO BID 01/14/25 01/14/25 ferrous sulfate 325 mg (65 mg 325 mg PO 3XWK 01/14/25 01/14/25 iron) tablet lisinopril 20 mg tablet 10 mg PO QAM 01/14/25 01/14/25 metformin 500 mg tablet 500 mg PO BIDWMEAL 01/14/25 01/14/25 torsemide 10 mg tablet 20 mg PO QAM 01/14/25 01/14/25 warfarin 4 mg tablet 4 mg PO 4XWK 01/14/25 01/14/25 warfarin 4 mg tablet 8 mg PO 3XWK 01/14/25 01/14/25 Results & Data (ED) Vital Signs Vital Signs - 24 hr 01/14/25 11:46 01/14/25 11:46 01/14/25 11:52 Temperature 36.6 C Temperature Source Temporal Artery Scan Pulse Rate 91 H Pulse Rate [Apical] Pulse Rhythm Pulse Rhythm [Apical] Pulse Strength [Apical] Respiratory Rate 16 Respiratory Effort / Characteristics Respiratory Depth Respiratory Pattern Blood Pressure 181/90 H Blood Pressure [Left Arm] Blood Pressure Mean 120 Blood Pressure Mean [Left Arm] Blood Pressure Position [Left Arm] Pulse Oximetry 76 L 93 Oxygen Delivery Method Room Air Room Air Oxymask Oxygen Flow Rate 10 Sepsis Recent Fever Within 48 Hours No Sepsis New/Unexplained Change in Mental Status N/A Sepsis Action Taken by Nursing No Action Required 01/14/25 11:56 01/14/25 11:56 01/14/25 11:56 Temperature Temperature Source Pulse Rate 82 Pulse Rate [Apical] 82 Pulse Rhythm Regular Pulse Rhythm [Apical] Regular Pulse Strength [Apical] Normal Respiratory Rate 18 24 Respiratory Effort / Characteristics Spontaneous Short of Breath Non-Labored Spontaneous Respiratory Depth Normal Normal Respiratory Pattern Regular Regular Blood Pressure Blood Pressure [Left Arm] 163/98 H Blood Pressure Mean Blood Pressure Mean [Left Arm] 119 Blood Pressure Position [Left Arm] Lying Pulse Oximetry 100 100 Oxygen Delivery Method Oxymask Oxymask Oxygen Flow Rate 10 10 Sepsis Recent Fever Within 48 Hours Sepsis New/Unexplained Change in Mental Status Sepsis Action Taken by Nursing 01/14/25 12:34 01/14/25 13:54 Temperature Temperature Source Pulse Rate 78 91 H Pulse Rate [Apical] Pulse Rhythm Pulse Rhythm [Apical] Pulse Strength [Apical] Respiratory Rate 22 Respiratory Effort / Characteristics Respiratory Depth Respiratory Pattern Blood Pressure 216/110 H Blood Pressure [Left Arm] Blood Pressure Mean 145 Blood Pressure Mean [Left Arm] Blood Pressure Position [Left Arm] Pulse Oximetry 93 Oxygen Delivery Method Nasal Cannula Oxygen Flow Rate 6 Sepsis Recent Fever Within 48 Hours Sepsis New/Unexplained Change in Mental Status Sepsis Action Taken by Nursing Laboratory Data 01/14/25 12:13 01/14/25 12:13 Lab Results 01/14/25 01/14/25 Range/Units 12:13 12:14 WBC 9.06 (4.8-10.8) K/ul RBC 3.90 L (4.20-5.40) M/uL Hgb 11.0 L (12.0-16.0) g/dl POC Hgb 11.9 L (12.0-16.0) g/dl Hct 35.2 L (37.0-47.0) % POC Hct 35 L (37-47) % MCV 90.3 (80.0-100.0) fL MCH 28.2 (25.0-34.0) pg MCHC 31.3 L (32.0-36.0) g/dL RDW Std Deviation 48.0 H (36.4-46.3) fL RDW Coeff of Anupama 14.6 H (11.5-14.5) % Plt Count 262 (130-400) K/uL MPV 10.2 (9.4-12.4) fL Immature Gran % (Auto) 0.7 % Neut % (Auto) 82.7 % Lymph % (Auto) 9.5 % [place] % (Auto) 4.2 % Eos % (Auto) 2.1 % Baso % (Auto) 0.8 % Neut # (Auto) 7.50 H (1.40-6.50) K/uL Lymph # (Auto) 0.86 L (1.20-3.40) K/uL [place] # (Auto) 0.38 (0.11-0.59) K/uL Eos # (Auto) 0.19 (0.00-0.50) K/uL Baso # (Auto) 0.07 (0.00-0.20) K/uL Immature Gran # (Auto) 0.06 (0.01-0.20) K/uL PT 25.2 H (9.0-12.0) Seconds INR 2.5 H (0.9-1.1) VBG pH 7.37 (7.36-7.41) VBG pCO2 42 (38-50) mmHg VBG pO2 47 mmHg VBG HCO3 24 mmol/L VBG O2 Saturation 74.6 % VBG Base Excess -1.1 mEq/L POC Sodium 142 (135-144) mmol/L Sodium 142 (136-145) mmol/L POC Potassium 3.9 (3.3-5.0) mmol/L Potassium 4.1 (3.5-5.1) mmol/L POC Chloride 107 (101-112) mmol/L Chloride 106 (98-107) mmol/L Carbon Dioxide 24 (21-32) mmol/L POC Total CO2 23 L (24-31) mmol/L Anion Gap 12 H (3-11) POC Anion Gap 18.0 (16-25) mmol/L POC BUN 20 H (7-18) mg/dl BUN 20 (6-23) mg/dl Creatinine 1.44 H (0.6-1.2) mg/dl POC Creatinine 1.5 H (0.6-1.3) mg/dl Est Cr Clr Drug Dosing 36.6 ml/min eGFR 37.46 BUN/Creatinine Ratio 13.9 (10-20) Glucose 147 H (70-99(Fasting)) mg/dl POC Glucose (other) 144 H (70-99) mg/dl Calcium 8.9 (8.6-10.3) mg/dl POC Ioniz Calcium [place] 1.07 L (1.12-1.32) mmol/l Phosphorus 3.8 (2.5-4.9) mg/dl Magnesium 2.0 (1.7-2.4) mg/dl Total Bilirubin 0.7 (0.2-1.0) mg/dl AST 20 (13-39) U/L ALT 14 (7-52) U/L Alkaline Phosphatase 104 (34-104) U/L Troponin I High Sens 11.6 (0-14) pg/ml B-Natriuretic Peptide 417 H (0-100) pg/ml Total Protein 7.7 (6.0-8.3) gm/dl Albumin 3.8 (3.4-5.0) gm/dl Globulin 3.9 (2.5-4.0) gm/dl Albumin/Globulin Ratio 1.0 (0.9-2) Administered Medications Discontinued Medications Amlodipine Besylate (Amlodipine Besylate 5 Mg Tab) 2.5 mg PO NOW ONE Stop: 01/14/25 13:53 Last Admin: 01/14/25 15:10 Dose: 2.5 mg Documented By: G Aspirin (Aspirin 81 Mg Ectab) 81 mg PO ONE ONE Stop: 01/14/25 15:01 Last Admin: 01/14/25 15:09 Dose: 81 mg Documented By: MSG Furosemide (Furosemide 40 Mg/4 Ml Vial) 40 mg IV ONE ONE Stop: 01/14/25 12:57 Last Admin: 01/14/25 13:17 Dose: 40 mg Documented By: MSG Furosemide (Furosemide Inj 20 Mg/2 Ml Vial) 20 mg IV ONE ONE Stop: 01/14/25 14:21 Last Admin: 01/14/25 15:09 Dose: 20 mg Documented By: G Lisinopril (Lisinopril 10 Mg Tab) 10 mg PO NOW ONE Stop: 01/14/25 13:53 Last Admin: 01/14/25 15:10 Dose: 10 mg Documented By: G Imaging Data Radiologist's Impression: Chest X-Ray 01/14/25 11:56 XR chest 1V portable CLINICAL HISTORY: Dyspnea. COMPARISON STUDY: Chest CT February 21, 2014. Chest radiograph October 03, 2018. FINDINGS: Right shoulder arthroplasty and median sternotomy wires are incidentally noted. There is severe osteoarthritis of the left glenohumeral joint. There is no pneumothorax. There are small bilateral pleural effusions. Cardiomegaly is unchanged. Interstitial thickening has developed. Right infrahilar linear density is noted. Right hilar prominence is likely due to pulmonary vessels. IMPRESSION: 1. Cardiomegaly with moderate interstitial pulmonary edema. Small bilateral pleural effusions. 2. Right hilar prominence likely related to pulmonary vessels. This can be assessed on follow-up radiographs. ACT 112: Negative or not required by law. Electronically signed by: Vini Nelson M.D. 01/14/2025 12:22 PM Discharge Plan Visit Data Chief Complaint: Shortness of Breath/Dyspnea Stated Complaint: SOB ED Provider: Damian Astorga Discharge Problem: Hypoxia Patient Disposition: Admitted As Inpatient Condition: Fair Discharge Instructions Interventions: ED Discharge Assessment Last Done: 01/14/25 16:42
[2025-01-14 12:21] LABS: Base Excess VBG -1.1 mEq/L; HCO3 VBG 24 mmol/L; Oxygen Saturation VBG 74.6 %; PCO2 VBG 42 mmHg (38-50); PO2 VBG 47 mmHg; pH VBG 7.37 (7.36-7.41)
--- NOTE | 2025-01-14 12:24 | XRay Report ---
XR chest 1V portable CLINICAL HISTORY: Dyspnea. COMPARISON STUDY: Chest CT February 21, 2014. Chest radiograph October 03, 2018. FINDINGS: Right shoulder arthroplasty and median sternotomy wires are incidentally noted. There is se marko osteoarthritis of the left glenohumeral joint. There is no pneumothorax. There are small bilater al pleural effusions. Cardiomegaly is unchanged. Interstitial thickening has developed. Right infrahi lar linear density is noted. Right hilar prominence is likely due to pulmonary vessels. IMPRESSION: 1. Cardiomegaly with moderate interstitial pulmonary edema. Small bilateral pleural effusions. 2. Right hilar prominence likely related to pulmonary vessels. This can be assessed on follow-up radi ographs. ACT 112: Negative or not required by law. Electronically signed by: Vini Nelson M.D. 01/14/2025 12:22 PM
[2025-01-14 12:31] LABS: Hematocrit (blood only) 35.2 % (37.0-47.0); Hemoglobin 11.0 g/dl (12.0-16.0); Immature Granulocytes # (auto) 0.06 K/uL (0.01-0.20); Immature Granulocytes % (auto) 0.7 %; Mean Corpuscular Hemoglobin 28.2 pg (25.0-34.0); Mean Corpuscular Volume 90.3 fL (80.0-100.0); Platelet Count 262 K/uL (130-400); RDW Standard Deviation 48.0 fL (36.4-46.3); Red Blood Count 3.90 M/uL (4.20-5.40); White Blood Count 9.06 K/ul (4.8-10.8)
[2025-01-14 12:47] LABS: Alanine Aminotransferase 14.0 U/L (7-52); Albumin Globulin Ratio 1.0 (0.9-2); Alkaline Phosphatase 104.0 U/L (34-104); Anion Gap 12.0 (3-11); Bilirubin,Total 0.7 mg/dl (0.2-1.0); Blood Urea Nitrogen 20.0 mg/dl (6-23); Calcium 8.9 mg/dl (8.6-10.3); Carbon Dioxide 24.0 mmol/L (21-32); Chloride 106.0 mmol/L (98-107); Creatinine Clr Calc Pharmacy 36.6 ml/min; Globulin 3.9 gm/dl (2.5-4.0); Glucose 147.0 mg/dl (70-99(Fasting)); Potassium 4.1 mmol/L (3.5-5.1); Sodium 142.0 mmol/L (136-145); Total Protein 7.7 gm/dl (6.0-8.3)
--- NOTE | 2025-01-14 13:12 | History & Physical Report ---
Date of Service January 14, 2025 Assessment & Plan (1) Acute hypoxemic respiratory failure: Plan: Patient is a 75 year old F with a past medical history of SVT, mitral regurg, severe calcific aortic stenosis s/p AVR in 2016 on anticoagulation, pulmonary hypertension, ASHLEY, DM Type II non-insulin dependent, CHD Stg III, HLD, seizure d/o, right breast carcinoma w/ mets s/p lumpectomy and chemo now in remission, presenting with shortness of breath since Tuesday. Patient reports always feeling short of breath, but noticed swelling to her ankles on Tuesday and she became short of breath with minimal exertion. Denies chest pain, no cough. She doubled her torsemide dose yesterday with no relief of symptoms. Acute hypoxic respiratory failure 2/2 new onset CHF exacerbation * Admit to PCU for further management * Hypoxia improving with oxygen support ~5-6 LPM NC; + crackles and very diminished to all lung lozano * VBG- pH 7.37, pCO2 42, PO2 47, HCO3 24, O2 sat 74.6%, Base excess -1.1. * Chest Xray w/ mod interstitial pulmonary edema; Small B/L pleural effusions; BNP 417 on admit * Furosemide 40 mg given in ED--> will give additional 20 mg to follow; Lasix 40 mg Daily to start in the morning; defer to Cardiology recs * Holding home torsemide * Cardiology consult ordered for further recs on diuresis * Echo 06/2024 showing LVEF 60-64%, LA severely enlarged. mod-sever MR; AV prosthesis systolic gradients abnormal suggesting moderate obstruction; Repeat Echo ordered and pending * EKG showing NSR vent rate 91 bpm, QTc 496- hold meds with QT prolong * Wean oxygen as able * PT consult ordered #Anemia * Hgb 11, Hct 35, RDW 48; baseline labs * Follows [facility] for anemia- on Iron supplementation 3x/week * Continue home iron and will check anemia panel with AM labs * Continue home anticoagulation with warfarin; follows anticoag clinic via [facility] #Hypertension * Managed with triple agents at home- lisinopril, amlodipine, carvedilol * Patient only took carvedilol REEL TENDER; one time dose lisinopril and amlodipine given * Recent decrease Lisinopril and Amlodipine d/t hyperkalemia (K+ 5.1) per OP lab workup; treated with Kayexalate OP w/ last dose Tuesday * Goal BP 140/90 * Continue home meds at current dose- no evidence ELOY, creat 1.44 (baseline 1.5) #ASHLEY * Continue home Bipap per RT protocol * No oxygen support at home * Wean O2 as needed to maintain sats >92% #Diabetes Mellitus Type II (non-insulin dependent) * Most recent A1C 6.3% * SSI while inpatient for Goal BSG 110-140 * Accucheck ACHS #Hyperlipidemia * Controlled w/ last LDL 51 on OP labs * Continue home statin DVT Ppx: Continue home coumadin, SCDs as tolerated Code status: DNR PCP: Dr. Devora Pinto Dispo: Admit to PCU for further management Patient seen in collaboration with Dr. Connelly. Please see addendum.I spent a total of 60 minutes coordinating, documenting and providing care for this patient excluding time spent in the performance of separately billed services or time spent by another provider/QHP. (2) CHF exacerbation: (3) Hypertension: (4) ASHLEY (obstructive sleep apnea): (5) Hypercholesterolemia: History of Present Illness Primary Care Provider: Devora Pinto MD Patient is a 75 year old F with a past medical history of SVT, mitral regurg, severe calcific aortic stenosis s/p AVR in 2016 on anticoagulation, pulmonary hypertension, ASHLEY, DM Type II non-insulin dependent, CHD Stg III, HLD, seizure d/o, right breast carcinoma w/ mets, s/p lumpectomy and chemo current remission, presenting with shortness of breath since Tuesday. Patient reports always feeling short of breath, but noticed swelling to her ankles on Tuesday and she became short of breath with minimal exertion. Denies chest pain, no cough. She doubled her torsemide dose yesterday with no relief of symptoms. Denies fever, chills, weight loss, weakness, headache, cognitive changes, vision/hearing changes, chest pain, urinary concerns, N/V/D, joint swelling/pain, ambulation difficulty, skin rashes, lesions, bleeding, bruising. In the emergency department, patient was hypoxic with oxygen sats in 70's and signs of distress, required 10 LPM via oxymask. VBG- pH 7.37, pCO2 42, PO2 47, HCO3 24, O2 sat 74.6%, Base excess -1.1. Chest Xray showed moderate interstitial pulmonary edema. Small bilateral pleural effusions. BNP elevated at 417. Lasix 40mg given x 1 in ED. Hypoxia improved and the patient was weaned to 5-6 LPM O2 via NC. No evidence of sepsis/infection with WBC 9.06. Patient afebrile. EKG showing NSR vent rate 91 bpm, QTc 496. Mild elevation in renal functioning with Cr 1.44 (baseline 1.5) with stable lytes. As per external chart review, lisinopril and amlodipine dose decreased recdently in setting of mild hyperkalemia. As per external record, h/o CKD III with a recent ELOY following ti tration of torsemide that revealed mild hyperkalemia (K+ 5.1) and treated with kayexalate OP. Completed treatment on Tuesday. Follows [facility] closely. Last echo from 06/2024 showing LVEF 60-64%, LA severely enlarged. mod- sever MR; AV prosthesis systolic gradients abnormal suggesting moderate obstruction with the rec from Cards this study is unchanged from previous. Patient follows valve clinic for h/o AV replacement in 2015; on anticoagulation with Coumadin. Reportedly, Coumadin added several months ago d/t concern clot forming near prosthetic valve. Mild anemia noted with Hgb 11. Currently on iron supplementation 3x/week. Found to have SHO following initiation of anticoagulation several months ago. She follows Hematology/Oncology due to her history of right breast carcinoma and has received anemia workup OP. History of right breast carcinoma, status post lumpectomy w/ metastatic disease; has received 4 cycles of chemotherapy in 2013. History obtained primarily from the patient and via hospitalization record. External chart review obtained from [employer]. Allergies Allergy/AdvReac Type Severity Reaction Status Date / Time Dyazide Allergy Intermediate FACIAL Unverified 12/12/19 10:36 EDEMA hydrochlorothiazide Allergy Intermediate FACIAL Verified 01/14/25 13:42 EDEMA triamterene Allergy Intermediate FACIAL Verified 01/14/25 13:42 EDEMA Fish Containing Products Allergy Mild Hives Verified 01/14/25 13:42 Sulfa (Sulfonamide Allergy Mild ITCHY Verified 01/14/25 13:42 Antibiotics) BLOTCHY simvastatin AdvReac Mild PAIN ALL Verified 01/14/25 13:42 OVER Home Medications Medication Instructions Recorded Confirmed Type atorvastatin 10 mg tablet 10 mg PO HS 09/21/18 01/14/25 History cyanocobalamin (vitamin B-12) 1,000 mcg sublingual HS 09/21/18 01/14/25 History 1,000 mcg sublingual tablet gabapentin 400 mg capsule 400 mg PO TID 09/21/18 01/14/25 History turmeric 400 mg capsule 500 mg PO DAILY 02/05/19 01/14/25 History alendronate 70 mg tablet 70 mg PO WK 01/14/25 01/14/25 History amlodipine 5 mg tablet 2.5 mg PO QAM 01/14/25 01/14/25 History aspirin 81 mg tablet,delayed 81 mg PO DAILY 01/14/25 01/14/25 History release carvedilol 12.5 mg tablet 12.5 mg PO BID 01/14/25 01/14/25 History ferrous sulfate 325 mg (65 mg 325 mg PO 3XWK 01/14/25 01/14/25 History iron) tablet lisinopril 20 mg tablet 10 mg PO QAM 01/14/25 01/14/25 History metformin 500 mg tablet 500 mg PO BIDWMEAL 01/14/25 01/14/25 History torsemide 10 mg tablet 20 mg PO QAM 01/14/25 01/14/25 History warfarin 4 mg tablet 4 mg PO 4XWK 01/14/25 01/14/25 History warfarin 4 mg tablet 8 mg PO 3XWK 01/14/25 01/14/25 History Past Med/Surg History Problem List (Updated 01/14/25 @ 17:17 by Damian Astorga DO) Hypoxia (Acute) Acute hypoxemic respiratory failure CHF exacerbation ASHLEY (obstructive sleep apnea) Avascular necrosis of head of humerus Encounter for pre-operative examination SVT (supraventricular tachycardia) (Acute) SVT (supraventricular tachycardia) (Acute 12/27/13) Hypomagnesemia (Acute) Status post right breast lumpectomy (Acute) Hypercholesterolemia (Chronic) Seizure disorder (Chronic) Degenerative joint disease (Acute) Carotid artery stenosis (Chronic) Hypertension (Chronic) Paroxysmal supraventricular tachycardia (Chronic) Diabetes mellitus (Chronic) Hepatomegaly (Chronic) Mitral valve regurgitation (Chronic) Medical History (Updated 01/14/25 @ 17:17 by Damian Astorga DO) Obesity Severe aortic stenosis JAN 2019 HAD ECHO: DR. TRACEY- [facility]Y [facility] s/p AVR Breast cancer RIGHT [id number] AND CHEMO 2016 Seizure disorder H/O LEFT SIDE GOING NUMB YEARS AGO, NONE SINCE STARTING GABAPENTIN Hx of supraventricular tachycardia HX ABLATION DONE -2016 NO ISSUES SINCE Osteoarthritis Neuropathy LOWER EXTREMITIES Diabetes mellitus, type 2 Sleep apnea CPAP HS SOB (shortness of breath) on exertion Hyperlipidemia Hypertension Surgical History History of cataract surgery LEFT History of reverse total replacement of right shoulder joint S/P AVR (aortic valve replacement) 2016 [place] [facility] [place] ECHO: DIAMOND 1.0cm^2, Ao mean PG 20.3 mmHg History of vascular access device PLACEMENT AND REMOVAL History of tooth extraction WISDOM TEETH Hx of lumpectomy RIGHT WITH NODE BIOPSY-2013 Numerous attempts at intubation with both MAC and Fiore blades without success History of section History of cardiac radiofrequency ablation 2016 History of cardiac cath 2015, NO INTERVENTION Family History Mother Family history of diabetes mellitus Denies family history of Myocardial infarction Stroke Social History Smoking Status: Never smoker Second Hand Exposure: No; Do You Dip or Chew Tobacco: No; Hx Alcohol Use: No Hx Substance Use: No Preferred Language: [place]al[place] Communication Ability: Effective Credit Adjuster Required: No Beliefs That Will Affect Care: None marital status: / Current Living Situation: Alone Feels Safe at Home: Yes Assistive Devices: Glasses Review of Systems Review of Systems: All systems reviewed & are unremarkable except as noted in HPI & below Physical Exam Physical Exam: VITALS: Reviewed. WEIGHT/BMI reviewed. GEN: well-developed, + distress PSYCH: Good Judgment. AOx3. Normal memory, mood, and affect. HEENT -Head: NC/AT; -Eyes: PERRL, EOMI. No discharge or redn ess; -Ears: External ears are normal. -Nose: Normal nares. -Mouth and throat: MMM. Normal gums, muc ashley, palate,. Good dentition. NECK: Supple, with no masses. CV: S1, S2, + murmur, +2 pitting ankle edema, regular rhythm LUNGS: Diminished bilaterally, poor air flow to bases, + crackles, no cough ABD: Soft, NT/ND, NBS, no masses or organomegaly. : minimal output SKIN: Warm, well perfused. No skin rashes or abnormal lesions. MSK: No deformities EXT: No clubbing, cyanosis, or edema. NEURO: CN II-XII grossly intact, Normal muscle strength and tone. No focal deficits. Results & Data Results & Data Vital Signs (Past 12 Hours) Vital Signs Temp Pulse Pulse Resp BP BP Pulse Ox 01/14/25 12:34 78 01/14/25 11:56 82 24 100 01/14/25 11:56 82 18 163/98 H 100 01/14/25 11:52 93 01/14/25 11:46 01/14/25 11:46 36.6 C 91 H 16 181/90 H 76 L O2 Del Method O2 Flow Rate 01/14/25 12:34 01/14/25 11:56 Oxymask 10 01/14/25 11:56 Oxymask 10 01/14/25 11:52 Oxymask 10 01/14/25 11:46 Room Air 01/14/25 11:46 Room Air Laboratory Results Short CBC 01/14/25 Range/Units 12:13 WBC 9.06 (4.8-10.8) K/ul Hgb 11.0 L (12.0-16.0) g/dl Hct 35.2 L (37.0-47.0) % Plt Count 262 (130-400) K/uL BMP 01/14/25 12:13 Sodium 142 Potassium 4.1 Chloride 106 Carbon Dioxide 24 BUN 20 Creatinine 1.44 H Glucose 147 H Calcium 8.9 Liver Function 01/14/25 Range/Units 12:13 Total Bilirubin 0.7 (0.2-1.0) mg/dl AST 20 (13-39) U/L ALT 14 (7-52) U/L Alkaline Phosphatase 104 (34-104) U/L Albumin 3.8 (3.4-5.0) gm/dl Diagnostic Findings Chest X-Ray 01/14/25 11:56 XR chest 1V portable CLINICAL HISTORY: Dyspnea. COMPARISON STUDY: Chest CT February 21, 2014. Chest radiograph October 03, 2018. FINDINGS: Right shoulder arthroplasty and median sternotomy wires are incidentally noted. There is severe osteoarthritis of the left glenohumeral joint. There is no pneumothorax. There are small bilateral pleural effusions. Cardiomegaly is unchanged. Interstitial thickening has developed. Right infrahilar linear density is noted. Right hilar prominence is likely due to pulmonary vessels. IMPRESSION: 1. Cardiomegaly with moderate interstitial pulmonary edema. Small bilateral pleural effusions. 2. Right hilar prominence likely related to pulmonary vessels. This can be assessed on follow-up radiographs. ACT 112: Negative or not required by law. Electronically signed by: Vini Nelson M.D. 01/14/2025 12:22 PM
[2025-01-14 13:13] LABS: INR 2.5 (0.9-1.1); Prothrombin Time 25.2 Seconds (9.0-12.0)
[2025-01-14] MEDS: FUROSEMIDE 40 MG/4 ML VIAL IV ONE (13:17)
[2025-01-14 14:22] LABS: Magnesium 2.0 mg/dl (1.7-2.4)
--- NOTE | 2025-01-14 14:26 | Communication Note ---
Date of Service: January 14, 2025 Attending Addendum: Case reviewed with the advanced practitioner. I have personally performed a history and physical examination on the patient. I have reviewed the advanced practitioner's documentation on the date of service referenced in note, and I agree with, and take responsibility for the plan of care. please refer to her notes for full details patient seen and examined, records reviewed by myself as well on exam, patient seen resting in bed, not in distress on 5 L nasal cannula, O2 sat 92% states breathing is somewhat improved denies active chest pain, headache, dizziness, palpitations no fever/chills, cough, sputum production no other symptoms VS noted and reviewed oriented x3, not in distress, speaks in sentences with no effort nor accessory muscle use normal rate, regular rhythm, no murmurs (+) mild crackles bilaterally non distended, soft, nontender mild lower leg edema, BL no erythema, warmth, tenderness no neuro deficits all labs, imaging noted and reviewed ASSESSMENT AND PLAN> ACUTE HYPOXIC RESPIRATORY FAILURE SECONDARY TO ACUTE ON CHRONIC CHF EXACERBATION history of diastolic CHF history of aortic valve replacement (21 mm [place] [employer] Epic prosthesis) in February 2016 aortic valve prosthesis obstruction moderate to severe mitral regurgitation severe pulmonary hypertension, preserved LV systolic function usually on Torsemide 20mg po daily crea 1.4 (baseline) BNP 417 CXR: 1. Cardiomegaly with moderate interstitial pulmonary edema. Small bilateral pleural effusions. 2. Right hilar prominence likely related to pulmonary vessels. This can be assessed on follow-up radiographs. was initially on non rebreather mask, now on 5 L Lasix 40mg IV given at the ED, additional 20mg IV ordered Lasix 40mg IV daily ordered continue usual Coumadin echo ordered Academic Director consulted HYPERTENSION patient did not take usual Lisinopril and Amlodipine this morning, ordered to be given now continue Carvedilol also DM 2 ISS for now no symptoms to suggest underlying bronchitis or pneumonia PE unlikely, patient on coumadin, INR therapeutic other diagnoses and plan of care as per advanced practitioner's notes I spent a total of 40 minutes coordinating, documenting, and providing care for this patient, excluding time spent in the performance of separately billed services or time spent by another provider/QHP. Esteban Connelly MD
[2025-01-14] MEDS: ASPIRIN 81 MG ECTAB PO ONE (15:09)
[2025-01-14] MEDS: FUROSEMIDE INJ 20 MG/2 ML VIAL IV ONE (15:09)
[2025-01-14] MEDS ORDERED: GLUCOSE 10 TAB/TUBE PO PRN (16:41)
[2025-01-14] MEDS ORDERED: POLYETHYLENE (MIRALAX) 17 GM PACK PO PRN (16:41)
[2025-01-14] MEDS ORDERED: DEXTROSE 50% 50 ML SYRINGE IV PRN (16:41)
[2025-01-14] MEDS ORDERED: PHARMACY GLYCEMIC MGMT CONSULT PRN (16:41)
[2025-01-14] MEDS ORDERED: GLUCOSE 40% GEL 15 GM TUBE PO PRN (16:41)
[2025-01-14] MEDS ORDERED: GLUCAGON FOR INJ 1 MG VIAL SQ PRN (16:41)
[2025-01-14] MEDS ORDERED: CARBOHYDRATES FOR HYPOGLYCEMIA PO PRN (16:41)
[2025-01-14] MEDS: WARFARIN SOD 4 MG TAB PO SCH (18:25)
[2025-01-14] MEDS: INSULIN ASPART PER UNIT CHARGE SC SCH (20:02)
[2025-01-14] MEDS: CYANOCOBALAMIN (B-12) 500 MCG TABLET PO SCH (22:28)
[2025-01-14] MEDS: GABAPENTIN 400 MG CAP PO SCH (22:28)
[2025-01-14] MEDS: ATORVASTATIN 10 MG TAB PO SCH (22:28)
[2025-01-14] MEDS: FERROUS SULFATE 325 MG TAB PO SCH (22:28)
[2025-01-14] MEDS: ACETAMINOPHEN 325 MG TAB PO PRN (22:50)
[2025-01-15 04:49] LABS: Hematocrit (blood only) 33.2 % (37.0-47.0); Hemoglobin 10.5 g/dl (12.0-16.0); Mean Corpuscular Hemoglobin 28.4 pg (25.0-34.0); Mean Corpuscular Volume 89.7 fL (80.0-100.0); Platelet Count 249 K/uL (130-400); RDW Standard Deviation 47.2 fL (36.4-46.3); Red Blood Count 3.70 M/uL (4.20-5.40); Reticulocytes # 0.090 10^6/uL (0.020-0.100); White Blood Count 7.22 K/ul (4.8-10.8)
[2025-01-15 05:05] LABS: Anion Gap 10.0 (3-11); Blood Urea Nitrogen 21.0 mg/dl (6-23); Calcium 8.7 mg/dl (8.6-10.3); Carbon Dioxide 27.0 mmol/L (21-32); Chloride 104.0 mmol/L (98-107); Creatinine Clr Calc Pharmacy 36.4 ml/min; Glucose 105.0 mg/dl (70-99(Fasting)); Iron 43.0 mcg/dl (35-150); Potassium 3.4 mmol/L (3.5-5.1); Sodium 141.0 mmol/L (136-145); Transferrin 262.0 mg/dl (200-360)
--- NOTE | 2025-01-15 05:24 | Electrocardiogram Report ---
Test Reason : Blood Pressure : */* mmHG Vent. Rate : 91 BPM Atrial Rate : 91 BPM P-R Int : 196 ms QRS Dur : 88 ms QT Int : 404 ms P-R-T Axes : 68 19 72 degrees QTcB Int : 496 ms Normal sinus rhythm Cannot rule out Anterior infarct , age undetermined Prolonged QT Abnormal ECG When compared with ECG of 01-Jan-2014 16:17, Vent. rate has increased by 44 bpm QT has lengthened Confirmed by Omar Easton ([id number]) on 01/15/2025 5:24:15 AM Referred By: Confirmed By: Omar Easton
[2025-01-15 05:26] LABS: Ferritin 34.2 ng/ml (8-388)
[2025-01-15 06:03] LABS: Folate (Folic Acid),Ser orPlas > 22.30 ng/ml (>5.38); Vitamin B12 > 1500 pg/ml (180-914)
[2025-01-15 06:38] LABS: Appearance Urine Clear (Clear); Bacteria Urine Automated 4+ (None Seen); Cast Urine Automated 0-2 /lpf (0-2); Epithelial Cell Urine Auto 0-2 /hpf (0-2); Glucose Urine UA Negative (Negative); RBC Urine Automated 0-2 /hpf (0-2); WBC Urine Automated 0-5 /hpf (0-5)
--- NOTE | 2025-01-15 08:35 | Cardiology Consultation ---
Date of Consultation January 15, 2025 Assessment & Plan (1) Acute hypoxemic respiratory failure: (2) Acute on chronic diastolic HF (heart failure): (3) Aortic stenosis: (4) ASHLEY (obstructive sleep apnea): (5) Hypertension: Plan Assessment: 75 year old female presents with progressively worsening shortness of breath and lower extremity edema. 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 Acute hypoxemic resp failure 2. Acute on chronic diastolic HF -patient presented with evidence of volume overload and required supplemental O2. No recent diet changes or adverse event. Carries a history of with prior AVR dating back to 2016 (Epic Valve). -diuresing well and feels notable improvment in her symptoms. -leg swelling (B/L) has improved. -Continue with Furosemide 60mg IV BID today with close monitoring of renal function and serum electrolytes. Goal serum K > 4.0 and Serum mag > 2.0 -Serum K 3.4 this AM, initial plan was to supplement with PO potassium;however, primary team has restarted Lisinopril. Carries history of recent hyperkalemia and therefore her Amlodipine was reduced, and Lisinopril was stopped OP. Will need to watch closely. lisinopril was restarted by primary team for hypertension concerns. -Strict I&O and daily weights with standing scale. -UA abnormal, Culture pending--> further management per primary team 3. Aortic Stenosis -Increased gradients noted on recent echo outpatient for several months. patient was started on Warfarin out of concern for potential clot on AVR. -She is currently scheduled to undergo an outpatient CAYLA at [facility] on 01/22/[address] Hearn. We will keep that appointment for specific evaluation and measurements of both aortic and mitral valve disease. -Currently following with Valve clinic (Dr. Caldwell) -Continue warfarin 4. ASHLEY -Continue home Bipap per protocol -Currently on room air at time of exam 5. Hypertension -BP controlled. -Patient restarted on Lisinopril and amlodipine by primary team. Monitor serum K closely and supplement if necessary. patient had recent hyperkalemia which required administrates of Kayexelate and postponed her abilit to have her CAYLA OP. Case has been discussed with Dr. Ellis. Further recommendations regarding plan of care as per his assessment. I spent a total of 45 minutes on the date of service in preparation, delivery, documentation of the care provided to the patient excluding any time spent in the performance of separately billed services. ZENON Cuevas [facility] Cardiology [facility] Supervising Physician Co-Signing Physician Notes Attending attestation: Case reviewed with the advanced practitioner. I have personally performed a history and physical examination on the patient. I have reviewed the advanced practitioner's documentation on the date of service referenced in note, and I agree with, and take responsibility for the plan of care. Subjective: Patient notes presenting symptoms shortness of breath much improved after receiving IV diuretic. Telemetry reveals sinus rhythm in the 60s to 70s. Exam: Cardiovascular regular rhythm, 2/6 systolic murmur heard best at the right sternal border pulmonary: Mildly decreased breath sounds bilaterally at the bases Data: Echocardiogram as noted, peak CW velocity across the aortic valve prosthesis on echocardiogram performed at [place] on 01/14/2025 was 3 m/s as compared to 3.5 m/s at the time of the outpatient echocardiogram within the [facility] on 07/20/2024. At that time the mean aortic valve prosthetic gradient was 26 mmHg, dimensionless index 0.30. Severe mitral annular calcification was noted at that time with moderate to severe mitral regurgitation, moderate tricuspid regurgitation, and the pulmonary artery systolic pressure was severely elevated, estimated to be 86 mmHg. Ejection fraction on echocardiogram performed yesterday as well as the recent outpatient echocardiogram was normal. Impression/ Plan: Acute on chronic heart failure with preserved ejection fraction Status post surgical aortic valve replacement February, with a 21 mm Saint Fan epic prosthesis Patient with moderate to severe elevation in estimated pulmonary artery systolic pressures, which has been a chronic finding dating back to before her AVR. It seems like the pressures are better immediately post AVR and have increased again. Question if this is related to diastolic dysfunction or perhaps coexistent mitral valve regurgitation. Patient tentatively scheduled for a transesophageal echocardiogram at [facility] next week with planned 3D planimetry of the prosthetic aortic valve area as well as assessment of the mitral valve. There has not been concerned about elevated prosthetic valve velocities in this patient with concern of patient prosthetic mitral manage previously. * Agree with plan for IV diuretic therapy. Continue furosemide 60 mg IV BID for now. * The prosthetic gradients have not improved after the addition of Coumadin dating back to March, * Plan further assessment transesophageal echocardiogram at [facility] next week * Once volume status is improved, future considerations include left and right heart catheterization for urinary Lavinia assessment including further investigation to see if the elevation in the pulmonary artery systolic pressure is precapillary or postcapillary. I spent a total of 20 minutes coordinating, documenting, and providing care for this patient excluding time spent in the performance of separately billed services or time spent by another provider. Manish Ellis DO History of Present Illness Reason for Consultation: CHF, shortness of breath Requesting Physician: Fany hospitalist Attending Physician: Ramy Wilkins DO History of Present Illness HPI: Patient is a 75 year old female with PMHx as outlined below that presents for acute complaints of worsening shortness of breath that started 3 days ago along with swelling to her bilateral ankles. Patient states that she doubled her torsemide dosing the day prior to admission with no relief and opted to present for further evaluation. Patient denies any other acute concerns. She states that early December, cardiology had reduced her Amlodipine and Lisinopril due to hyperkalemia. Patient is scheduled to undergo a CAYLA for further evaluation of her aortic valve prosthesis on 01/22/[address] Hearn at [facility]. Patient denies any chest pain, pressure or palpitations. She feels her breathing has improved since admission and is urinating "a lot". She denies any fevers, chills, recent URI symptoms. no near syncope or syncope. Endorses some mild lower extremity edema although improved since arrival. currently receiving lasix 60mg IV BID. Problem List: 1. History of severe calcific aortic stenosis, status post AVR with 21 mm Saint Fan epic 02/27/2016. Elevated gradient at the time of implant suggesting possible patient prosthesis mismatch, elevated systolic bioprosthetic aortic valve gradient suggesting obstruction followed by the [facility] 2. Moderate-severe pulmonary hypertension 3. ASHLEY, on BiPAP 4. 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 Mild-moderate carotid vascular disease 6. Dyslipidemia, LDL goal below 70 7. Hypertensive heart disease with labile hypertension 8. Morbid obesity 9. Type 2 diabetes--Non-insulin dependent 10. History of right breast carcinoma, status post lumpectomy, 2/6 lymph kinjal positive for metastatic disease= received systemic chemo with Taxotere and cyclophosphamide, received 4 cycles of chemotherapy between 11/26/2013-01/28/2014. Now on anastrozole 1 mg daily since 03/2014 11. Seizure disorder EKG on admission SR, possible prior anterior infarct, prolonged QT (QTc: 496ms) significant artifact in tracing. UA positive. Urine culture pending chest xray: IMPRESSION: 1. Cardiomegaly with moderate interstitial pulmonary edema. Small bilateral pleural effusions. 2. Right hilar prominence likely related to pulmonary vessels. This can be assessed on follow-up radiographs. Review of telemetry shows SR with occasional PVC's rates 70's. Allergies Allergy/AdvReac Type Severity Reaction Status Date / Time Dyazide Allergy Intermediate FACIAL Unverified 12/12/19 10:36 EDEMA hydrochlorothiazide Allergy Intermediate FACIAL Verified 01/14/25 13:42 EDEMA triamterene Allergy Intermediate FACIAL Verified 01/14/25 13:42 EDEMA Fish Containing Products Allergy Mild Hives Verified 01/14/25 13:42 Sulfa (Sulfonamide Allergy Mild ITCHY Verified 01/14/25 13:42 Antibiotics) BLOTCHY simvastatin AdvReac Mild PAIN ALL Verified 01/14/25 13:42 OVER Home Medications Medication Instructions Recorded Confirmed Type atorvastatin 10 mg tablet 10 mg PO HS 09/21/18 01/14/25 History cyanocobalamin (vitamin B-12) 1,000 mcg sublingual HS 09/21/18 01/14/25 History 1,000 mcg sublingual tablet gabapentin 400 mg capsule 400 mg PO TID 09/21/18 01/14/25 History turmeric 400 mg capsule 500 mg PO DAILY 02/05/19 01/14/25 History alendronate 70 mg tablet 70 mg PO WK 01/14/25 01/14/25 History amlodipine 5 mg tablet 2.5 mg PO QAM 01/14/25 01/14/25 History aspirin 81 mg tablet,delayed 81 mg PO DAILY 01/14/25 01/14/25 History release carvedilol 12.5 mg tablet 12.5 mg PO BID 01/14/25 01/14/25 History ferrous sulfate 325 mg (65 mg 325 mg PO 3XWK 01/14/25 01/14/25 History iron) tablet lisinopril 20 mg tablet 10 mg PO QAM 01/14/25 01/14/25 History metformin 500 mg tablet 500 mg PO BIDWMEAL 01/14/25 01/14/25 History torsemide 10 mg tablet 20 mg PO QAM 01/14/25 01/14/25 History warfarin 4 mg tablet 4 mg PO 4XWK 01/14/25 01/14/25 History warfarin 4 mg tablet 8 mg PO 3XWK 01/14/25 01/14/25 History Patient History Medical History (Updated 01/15/25 @ 14:05 by Ramy Wilkins DO) Obesity Severe aortic stenosis JAN 2019 HAD ECHO: DR. TRACEY- [facility] s/p AVR Breast cancer RIGHT [id number] AND CHEMO 2016 Seizure disorder H/O LEFT SIDE GOING NUMB YEARS AGO, NONE SINCE STARTING GABAPENTIN Hx of supraventricular tachycardia HX ABLATION DONE -2015 NO ISSUES SINCE Osteoarthritis Neuropathy LOWER EXTREMITIES Diabetes mellitus, type 2 Sleep apnea CPAP HS SOB (shortness of breath) on exertion Hyperlipidemia Hypertension Surgical History History of cataract surgery LEFT History of reverse total replacement of right shoulder joint S/P AVR (aortic valve replacement) 2016 @ [facility] [place] 11/15/17 ECHO: DIAMOND 1.0cm^2, Ao mean PG 20.3 mmHg History of vascular access device PLACEMENT AND REMOVAL History of tooth extraction WISDOM TEETH Hx of lumpectomy RIGHT WITH NODE BIOPSY-2013 Numerous attempts at intubation with both MAC and Fiore blades without success History of section History of cardiac radiofrequency ablation 2016 History of cardiac cath 2016, NO INTERVENTION Family History Mother Family history of diabetes mellitus Denies family history of Myocardial infarction Stroke Social History Smoking Status: Unknown if ever smoked Second Hand Exposure: No; Do You Dip or Chew Tobacco: No; Hx Alcohol Use: No Hx Substance Use: No Preferred Language: German Communication Ability: Effective Corporate Tutor Required: No Beliefs That Will Affect Care: None marital status: / Current Living Situation: Alone Other Information That Helps Us Care for You: No Feels Safe at Home: Yes Safety Concerns: Feels Safe At This Time Assistive Devices: BiPap and Cane Review of Systems Review of Systems: All systems reviewed & are unremarkable except as noted in HPI & below Physical Exam Constitutional: well developed and well nourished Neck: normal visual inspection and trachea midline Respiratory: normal respiratory effort; no respiratory distress, no labored breathing and no cough Auscultation: lungs clear to auscultation bilaterally and + diminished lung sounds (bilateral bases ); no crackles, no rales, no rhonchi and no wheezes Cardiovascular: Rate/Rhythm: regular rate and regular rhythm Heart Sounds: normal S1 and + murmur (+2/6 systolic ) Vessels: dorsalis pedis pulses present; no JVD Extremities: + edema (trace to +1 BLE) Skin: no rashes, warm and dry Psychiatric: A+Ox3, euthymic affect Results & Data Vital Signs (Past 12 Hours) Vital Signs Temp Pulse Resp BP Pulse Ox Pulse Ox O2 Del Method 01/15/25 08:04 77 16 122/64 96 Room Air 01/15/25 07:24 69 01/15/25 05:45 72 18 133/64 97 Nasal Cannula 01/15/25 03:09 57 L 16 124/61 97 Nasal Cannula 01/15/25 02:00 60 23 125/60 97 Nasal Cannula 01/15/25 01:30 59 L 22 110/60 97 Nasal Cannula 01/15/25 00:30 63 20 108/60 92 Nasal Cannula 01/15/25 00:03 62 18 126/54 L 93 Nasal Cannula 01/14/25 23:36 73 20 94 Nasal Cannula 01/14/25 23:00 78 17 135/89 99 Nasal Cannula 01/14/25 23:00 36.6 C 01/14/25 23:00 98 O2 Del Method O2 Flow Rate O2 Flow Rate 01/15/25 08:04 01/15/25 07:24 01/15/25 05:45 5 01/15/25 03:09 5 01/15/25 02:00 5 01/15/25 01:30 5 01/15/25 00:30 5 01/15/25 00:03 5 01/14/25 23:36 5 01/14/25 23:00 5 01/14/25 23:00 01/14/25 23:00 Nasal Cannula 5 Laboratory Results Cardiac Enzymes 01/14/25 Range/Units 12:13 AST 20 (13-39) U/L Troponin I High Sens 11.6 (0-14) pg/ml B-Natriuretic Peptide 417 H (0-100) pg/ml Coagulation 01/14/25 Range/Units 12:13 PT 25.2 H (9.0-12.0) Seconds B-Natriuretic Peptide 417 H (0-100) pg/ml CBC 01/14/25 01/15/25 Range/Units 12:13 04:36 WBC 9.06 7.22 (4.8-10.8) K/ul RBC 3.90 L 3.70 L (4.20-5.40) M/uL Hgb 11.0 L 10.5 L (12.0-16.0) g/dl Hct 35.2 L 33.2 L (37.0-47.0) % Plt Count 262 249 (130-400) K/uL Neut # (Auto) 7.50 H (1.40-6.50) K/uL Lymph # (Auto) 0.86 L (1.20-3.40) K/uL [place] # (Auto) 0.38 (0.11-0.59) K/uL Eos # (Auto) 0.19 (0.00-0.50) K/uL Baso # (Auto) 0.07 (0.00-0.20) K/uL Comprehensive Metabolic Panel 01/14/25 01/15/25 Range/Units 12:13 04:35 Sodium 142 141 (136-145) mmol/L Potassium 4.1 3.4 L (3.5-5.1) mmol/L Chloride 106 104 (98-107) mmol/L Carbon Dioxide 24 27 (21-32) mmol/L BUN 20 21 (6-23) mg/dl Creatinine 1.44 H 1.45 H (0.6-1.2) mg/dl Glucose 147 H 105 H (70-99(Fasting)) mg/dl Calcium 8.9 8.7 (8.6-10.3) mg/dl AST 20 (13-39) U/L ALT 14 (7-52) U/L Alkaline Phosphatase 104 (34-104) U/L Total Protein 7.7 (6.0-8.3) gm/dl Albumin 3.8 (3.4-5.0) gm/dl Intake and Output 01/14/25 01/15/25 01/15/25 22:59 06:59 14:59 Intake Total 225 / 225 Output Total 400 / 400 300 / 300 Balance -175 / -175 -300 / -300 Intake: Oral 225 / 225 Output: Urine 250 / 250 300 / 300 Urine Amount (Catheter) 150 / 150 External 150 / 150 Other: Weight 102.1 kg Weight Measurement Method Built in [facility] Diagnostic Findings Echocardiogram 01/14/25 LV normal in size Moderate concentric LVH LV hyperdynamic with LVEF > 70% Left atrium severely dilated Presence of bioprosthetic aortic valve Peak velocity 3m/sec/gradients upper limites of normal for valve structure, there is no aortic insufficiency. Severe mitral annular calcification Mitral valves severely thickened and calcified Moderate MR Moderate TR RVSP > 60mmHg consistent with severe pulmonary HTN [id number]: 298.5cm/sec AoMax P.7mmHg DIAMOND (V,D) 0.99cm2 PG Care Time/CCT Total # of Minutes Spent Total Time Spent with Patient: Total time spent is greater than 50% in coordination of care (as documented) at patient's floor/unit and/or counseling patient: [place] [address] IN/OBS CONSULT LVL 5,80M Patient Type New Diagnoses Acute hypoxemic respiratory failure J96.01 Acute on chronic diastolic HF (heart failure) I50.33 Aortic stenosis I35.0 ASHLEY (obstructive sleep apnea) G47.33 Hypertension I10 Time Spent (min) 65 Comment 45 minutes were spent by ZENON Jones and [address] Ellis
[2025-01-15] MEDS: FUROSEMIDE 40 MG/4 ML VIAL IV SCH (08:37)
[2025-01-15] MEDS: ASPIRIN 81 MG ECTAB PO SCH (08:40)
[2025-01-15 08:45] LABS: Hemoglobin A1C 6.1 % (4.5-5.6)
[2025-01-15] MEDS ORDERED: FUROSEMIDE 40 MG/4 ML VIAL IV SCH (09:00)
--- NOTE | 2025-01-15 09:32 | Pharmacy Report ---
Pharmacy Glycemic Short Note 2 - Date of Service January 15, 2025 - Glycemic Short BSG Results (Last 24 hours): 01/14/25 01/14/25 01/14/25 12:13 12:14 17:02 Glucose 147 H POC Glucose 104 H POC Glucose (other) 144 H 01/14/25 01/15/25 01/15/25 22:23 04:35 07:27 Glucose 105 H POC Glucose 120 H 106 H POC Glucose (other) OUTPATIENT ANTIDIABETIC REGIMEN: * metformin 500 mg PO BIDM HbA1c: 6.1% (01/15/25) ASSESSMENT: * MW is a 75 year old female w/ acute hypoxemic respiratory failure secondary to CHF exacerbation * Pertinent PMH includes T2DM (well-controlled), hypertension, pulmonary hypertension, hyperlipidemia, anemia, severe calcific aortic stenosis, and hx right breast carcinoma * Pharmacy consulted for glycemic management * Blood sugars very well-controlled so far * Patient unlikely to require aggressive insulin regimen at this time PLAN FOR INPATIENT GLYCEMIC CONTROL: * Hold outpatient oral diabetes medications * Basal insulin * hold * Bolus insulin * NovoLog per scale ACHS or Q6hrs while NPO * Goal Range: Low 120 mg/dL - High 160 mg/dL * Correction Factor: 30 mg/dL/unit * Nutritional / Prandial insulin per carb ratio of 1 unit per 10 grams CHO consumed
[2025-01-15] MEDS: POTASSIUM CHLORIDE CRTAB 20 MEQ TABCR PO STA (13:56)
--- NOTE | 2025-01-15 14:07 | Hospitalist Progress Note ---
Date of Service January 15, 2025 Assessment & Plan (1) Acute hypoxemic respiratory failure: (2) Acute diastolic heart failure due to valvular disease: (3) Severe aortic stenosis: (4) Seizure disorder: (5) Hypokalemia: (6) Chronic renal failure (CRF), stage 3b: (7) Sleep apnea: (8) Diabetes mellitus, type 2: Plan Patient presents acute on chronic heart failure due to valvular dysfunction/aortic stenosis. Has responded well to diuresis. Continue IV diuretics today Titrate oxygen to off as able Replace potassium Reviewed cardiology consultation. Patient with previous history of hyperkalemia in the setting of [place] inhibitor. Will discontinue lisinopril. This has been discontinued outpatient. Monitor renal function and electrolytes in a.m. Continue other outpatient medications Admission and Anticipated Discharge Date Admission Date: January 14, 2025 Subjective Patient states she is feeling better. Less short of breath. Does not feel that she has put out much urine today with her Lasix. Edema significantly decreased Physical Exam Physical Exam: Constitutional: Alert HEENT: Mucous membranes moist. Lungs: Decreased breath sounds, few crackles CV: S1-S2, regular, systolic murmur Abdomen: Soft, nontender, nondistended Extremities: Trace ankle, pretibial edema, improved Neuro: No focal deficits Psych: Cooperative, normal mood Results & Data Results & Data Vital Signs (Past 12 Hours) Vital Signs Pulse Resp BP Pulse Ox Pulse Ox O2 Del Method O2 Flow Rate 01/15/25 13:40 88 L 01/15/25 13:33 67 22 114/66 94 Nasal Cannula 3 01/15/25 13:27 96 Nasal Cannula 3 01/15/25 13:03 66 22 123/68 96 Nasal Cannula 5 01/15/25 12:00 68 24 121/56 L 99 Nasal Cannula 5 01/15/25 10:33 63 20 115/53 L 92 Nasal Cannula 5 01/15/25 08:04 77 16 122/64 96 Room Air 01/15/25 07:24 69 01/15/25 05:45 72 18 133/64 97 Nasal Cannula 5 01/15/25 03:09 57 L 16 124/61 97 Nasal Cannula 5 Diagnostic Findings Reviewed imaging, laboratory and diagnostic studies. Pertinent findings as below. Hemoglobin 10.5 Potassium 3.4 Creatinine 1.45
[2025-01-15] MEDS: WARFARIN SOD 4 MG TAB PO SCH (17:20)
[2025-01-16 06:13] LABS: Hematocrit (blood only) 32.4 % (37.0-47.0); Hemoglobin 10.3 g/dl (12.0-16.0); Mean Corpuscular Hemoglobin 28.9 pg (25.0-34.0); Mean Corpuscular Volume 90.8 fL (80.0-100.0); Platelet Count 243 K/uL (130-400); RDW Standard Deviation 47.4 fL (36.4-46.3); Red Blood Count 3.57 M/uL (4.20-5.40); White Blood Count 7.91 K/ul (4.8-10.8)
[2025-01-16 06:15] LABS: Prothrombin Time 65.3 Seconds (9.0-12.0)
[2025-01-16 06:27] LABS: INR 7.2 (0.9-1.1)
[2025-01-16 06:46] LABS: Anion Gap 11.0 (3-11); Calcium 8.6 mg/dl (8.6-10.3); Carbon Dioxide 26.0 mmol/L (21-32); Chloride 103.0 mmol/L (98-107); Magnesium 2.0 mg/dl (1.7-2.4); Potassium 3.7 mmol/L (3.5-5.1); Sodium 140.0 mmol/L (136-145)
[2025-01-16 06:52] LABS: Blood Urea Nitrogen 30.0 mg/dl (6-23); Creatinine Clr Calc Pharmacy 31.2 ml/min; Glucose 97.0 mg/dl (70-99(Fasting))
--- NOTE | 2025-01-16 07:52 | Cardiology Progress Note ---
Date of Service January 16, 2025 Assessment & Plan (1) Aortic stenosis: Plan Data: Echocardiogram as noted, peak CW velocity across the aortic valve prosthesis on [facility] on 01[facility]25 was 3 m/s as compared to 3.5 m/s at the time of the outpatient echocardiogram within the [facility] on 07/20/2024. At that time the mean aortic valve prosthetic gradient was 26 mmHg, dimensionless index 0.30. Severe mitral annular calcification was noted at that time with moderate to severe mitral regurgitation, moderate tricuspid regurgitation, and the pulmonary artery systolic pressure was severely elevated, estimated to be 86 mmHg. Ejection fraction on echocardiogram performed yesterday as well as the recent outpatient echocardiogram was normal. Impression/ Plan: Acute on chronic heart failure with preserved ejection fraction Status post surgical aortic valve replacement February, with a 21 mm Saint Fan epic prosthesis Patient with moderate to severe elevation in estimated pulmonary artery systolic pressures, which has been a chronic finding dating back to before her AVR. It seems like the pressures are better immediately post AVR and have increased again. Question if this is related to diastolic dysfunction or perhaps coexistent mitral valve regurgitation. Patient tentatively scheduled for a transesophageal echocardiogram at [facility] next week with planned 3D planimetry of the prosthetic aortic valve area as well as assessment of the mitral valve. There has not been concerned about elevated prosthetic valve velocities in this patient with concern of patient prosthetic mitral manage previously. * Agree with plan for IV diuretic therapy. Continue furosemide 60 mg IV BID for now. * The prosthetic gradients have not improved after the addition of Coumadin dating back to March, * Plan further assessment transesophageal echocardiogram at [facility] next week * Once volume status is improved, future considerations include left and right heart catheterization for urinary Lavinia assessment including further investigation to see if the elevation in the pulmonary artery systolic pressure is precapillary or postcapillary. I spent a total of 20 minutes coordinating, documenting, and providing care for this patient excluding time spent in the performance of separately billed services or time spent by another provider. Admission and Anticipated Discharge Date Admission Date: January 14, 2025 Supervising Physician Co-Signing Physician Notes Attending Staff 75 yo woman presenting with dyspnea and LE edema Dx: HFpEF Consult - HFpEF * Marginal SBP * UA - trace protein Hx: * S/P SAVR ([address] Fan - Bioprosthetic Valve) * Severe Pulmonary HTN * ASHLEY on CPAP * DM * Hyperlipidemia * Hypertension * Right - Breast CA * CKD Plans: * Plans had been underway to have a CAYLA with planimetry at [facility] on 01-22-2025; concerns about patient - prosthesis mismatch * Had been on systemic anticoagulation to ensure she is covered for Valve Thrombosis * CXR - mild CHF noted, S/P Sternotomy * Patient appear euvolemic * Wean O2 * PT/OT - ambulatory sat monitor * Marginal Systolic BP * OFF Lisinopril * OFF Amlodipine * K+ goal 4.4-5 * Kdur 40 meq po x 1 * Mag goal >2 * HOLD Lasix * INR 7 - no active bleeding; HCT Stable * No Vitamin K * Rx for UTI * 62 min spent addressing challenges, educating and advancing daily plan of care Nickolas Herndon Subjective Events Overnight: Subjective: Review of Systems Review of Systems: All systems reviewed & are unremarkable except as noted in HPI & below Physical Exam Physical Exam: Obese Glasses No elevation in JVP S1S2 2/6 Systolic Murmur CTA B No C/C/E Warm and perfusing Results & Data Vital Signs (Past 12 Hours) Vital Signs Temp Pulse Pulse Resp BP Pulse Ox O2 Del Method 01/16/25 07:22 36.5 C 70 18 133/82 97 Nasal Cannula 01/16/25 02:33 36.5 C 68 20 107/62 93 Nasal Cannula 01/15/25 22:19 36.8 C 64 18 111/71 94 Nasal Cannula 01/15/25 21:42 64 O2 Flow Rate 01/16/25 07:22 2 01/16/25 02:33 01/15/25 22:19 01/15/25 21:42 Laboratory Results Coagulation 01/16/25 Range/Units 05:48 PT 65.3 H (9.0-12.0) Seconds CBC 01/16/25 Range/Units 05:48 WBC 7.91 (4.8-10.8) K/ul RBC 3.57 L (4.20-5.40) M/uL Hgb 10.3 L (12.0-16.0) g/dl Hct 32.4 L (37.0-47.0) % Plt Count 243 (130-400) K/uL Comprehensive Metabolic Panel 01/16/25 Range/Units 05:48 Sodium 140 (136-145) mmol/L Potassium 3.7 (3.5-5.1) mmol/L Chloride 103 (98-107) mmol/L Carbon Dioxide 26 (21-32) mmol/L BUN 30 H (6-23) mg/dl Creatinine 1.69 H (0.6-1.2) mg/dl Glucose 97 (70-99(Fasting)) mg/dl Calcium 8.6 (8.6-10.3) mg/dl Intake and Output 01/15/25 01/16/25 01/16/25 22:59 06:59 14:59 Intake Total 200 / 320 120 / 320 50 / 50 Output Total 800 / 1500 250 / 1500 Balance -600 / -1180 -130 / -1180 50 / 50 Intake: IV 50 / 50 cefTRIAXone SODIUM 2,000 mg In 50 / 50 50 ml @ 100 mls/hr IV Q24H [facility] Rx#:[id number] Oral 200 / 320 120 / 320 Output: Urine Amount (Catheter) 800 / 1050 250 / 1050 External 800 / 1050 250 / 1050 Medications Administered Current Inpatient Medications Acetaminophen (Acetaminophen 325 Mg Tab) 650 mg PO Q4H PRN PRN Reason: Pain or Fever Stop: 02/13/25 16:40 Last Admin: 01/14/25 22:50 Dose: 650 mg Amlodipine Besylate (Amlodipine Besylate 5 Mg Tab) 2.5 mg PO [facility] Stop: 02/14/25 08:59 Last Admin: 01/16/25 08:13 Dose: 2.5 mg Aspirin (Aspirin 81 Mg Ectab) 81 mg PO DAILY [facility] Stop: 02/14/25 08:59 Last Admin: 01/16/25 08:15 Dose: 81 mg Atorvastatin Calcium (Atorvastatin 10 Mg Tab) 10 mg PO [facility] Stop: 02/13/25 20:59 Last Admin: 01/15/25 20:44 Dose: 10 mg Carvedilol (Carvedilol 12.5 Mg Tab) 12.5 mg PO BID [facility] Stop: 02/13/25 20:59 Last Admin: 01/16/25 08:12 Dose: 12.5 mg Cyanocobalamin (Cyanocobalamin (B-12) 500 Mcg Tablet) 1,000 mcg PO [facility] Stop: 02/13/25 20:59 Last Admin: 01/15/25 20:44 Dose: 1,000 mcg Dextrose (Dextrose 50% 50 Ml Syringe) 25 - 50 ml IV UD PRN; Protocol PRN Reason: Hypoglycemia Protocol Stop: 02/13/25 16:40 Ferrous Sulfate (Ferrous Sulfate 325 Mg Tab) 325 mg PO MoWeFr@0900 [facility] Stop: 02/13/25 16:59 Last Admin: 01/16/25 08:15 Dose: 325 mg Furosemide (Furosemide 40 Mg/4 Ml Vial) 60 mg IV BID [facility] Stop: 02/14/25 08:59 Last Admin: 01/16/25 08:24 Dose: 60 mg Gabapentin (Gabapentin 400 Mg Cap) 400 mg PO TID [facility] Stop: 02/13/25 20:59 Last Admin: 01/16/25 08:13 Dose: 400 mg Glucagon (Glucagon For Inj 1 Mg Vial) 1 mg SQ UD PRN; Protocol PRN Reason: Hypoglycemia Protocol Stop: 02/13/25 16:40 Glucose (Glucose 40% Gel 15 Gm Tube) 15 - 30 gm PO UD PRN; Protocol PRN Reason: Hypoglycemia Protocol Stop: 02/13/25 16:40 Glucose (Glucose 10 Tab/Tube) 4 - 8 tab PO UD PRN; Protocol PRN Reason: Hypoglycemia Protocol Stop: 02/13/25 16:40 Ceftriaxone Sodium (Rocephin) 2,000 mg in 50 mls @ 100 mls/hr IV Q24H [facility] Stop: 01/21/25 08:59 Last Infusion: 01/16/25 11:41 Dose: Infused Insulin Aspart (Insulin Aspart Per Unit Charge) 0 units SC ACHS [facility] Stop: 02/13/25 16:59 Last Admin: 01/16/25 08:10 Dose: Not Given Miscellaneous (Carbohydrates For Hypoglycemia ) 15 - 30 gm PO UD PRN PRN Reason: Hypoglycemia Protocol Stop: 02/13/25 16:40 Miscellaneous Information (Pharmacy Glycemic Mgmt Consult) 1 each N/A UD PRN PRN Reason: Consult Stop: 02/13/25 16:40 Polyethylene Glycol (Polyethylene (Miralax) 17 Gm Pack) 17 gm PO DAILY PRN PRN Reason: Constipation Stop: 02/13/25 16:40 Warfarin Sodium (Warfarin Sod 4 Mg Tab) 8 mg PO MoWeFr@1600 [facility] Stop: 02/13/25 15:59 Last Admin: 01/14/25 18:25 Dose: 8 mg Warfarin Sodium (Warfarin Sod 4 Mg Tab) 4 mg PO SuTuThSa@1600 [facility] Stop: 02/14/25 15:59 Last Admin: 01/15/25 17:20 Dose: 4 mg PG Care Time/CCT Total # of Minutes Spent Total Time Spent with Patient: Total time spent is greater than 50% in coordination of care (as documented) at patient's floor/unit and/or counseling patient: Coding Level of Care Code 77566 SUB INP/OBS CARE 3/50MIN Diagnoses Aortic stenosis I35.0
--- NOTE | 2025-01-16 08:15 | Hospitalist Progress Note ---
Date of Service January 16, 2025 Assessment & Plan (1) Acute hypoxemic respiratory failure: (2) Acute diastolic heart failure due to valvular disease: (3) Severe aortic stenosis: (4) Seizure disorder: (5) Hypokalemia: (6) Chronic renal failure (CRF), stage 3b: (7) Sleep apnea: (8) Diabetes mellitus, type 2: Plan (1) Acute hypoxemic respiratory failure: Plan: Patient is a 75 year old F with a past medical history of SVT, mitral regurg, se marko calcific aortic stenosis s/p AVR in 2016 on anticoagulation, pulmonary hypertension, ASHLEY, DM Type II non-insulin dependent, CHD Stg III, HLD, seizure d/o, right breast carcinoma w/ mets s/p lumpectomy and chemo now in remission, presenting with shortness of breath since Tuesday. Patient reports always feeling short of breath, but noticed swelling to her ankles on Tuesday and she became short of breath with minimal exertion. Denies chest pain, no cough. She doubled her torsemide dose yesterday with no relief of symptoms. Acute hypoxic respiratory failure 2/2 new onset CHF exacerbation, Aortic stenosis Patient presents acute on chronic heart failure due to valvular dysfunction/aortic stenosis. Has responded well to diuresis. * Admitted to PCU * Hypoxia improving * Chest Xray w/ mod interstitial pulmonary edema; Small B/L pleural effusions; BNP 417 on admit * On IV Furosemide per Cardiology, Holding home torsemide -> now BP low and pt's improved so lasix stopped * Cardiology consulted , and following closely * Echo 06/2024 showing LVEF 60-64%, LA severely enlarged. mod-sever MR; AV prosthesis systolic gradients abnormal suggesting moderate obstruction;Current Echo - peak CW velocity across the aortic valve prosthesis on echocardiogram performed at [facility] on 01/14/2025 was 3 m/s as compared to 3.5 m/s at the time of the outpatient echocardiogram within the [facility] system on 07/20/2024. At that time the mean aortic valve prosthetic gradient was 26 mmHg, dimensionless index 0.30. Severe mitral annular calcification was noted at that time with moderate to severe mitral regurgitation, moderate tricuspid regurgitation, and the pulmonary artery systolic pressure was severely elevated, estimated to be 86 mmHg. Ejection fraction on echocardiogram performed yesterday as well as the recent outpatient echocardiogram was normal. * EKG showing NSR vent rate 91 bpm, QTc 496- hold meds with QT prolong * Wean oxygen as able * PT consult ordered Anemia * Hgb 11, Hct 35, RDW 48; baseline labs * Follows [facility] for anemia- on Iron supplementation 3x/week * Continue home iron and will check anemia panel with AM labs * Continue home anticoagulation with warfarin; [facility] * current INR 7.2 - wafarin on hold #Hypertension * Managed with triple agents at home- lisinopril, amlodipine, carvedilol * Recent decrease Lisinopril and Amlodipine d/t hyperkalemia (K+ 5.1), lisinopril also now stopped * (baseline Cr 1.5) #ASHLEY * Continue home Bipap * Wean O2 as needed to maintain sats >92% UTI UA w/ nitrites, + bacteria Ucultx pending empiric ceftriaxone for now #Diabetes Mellitus Type II (non-insulin dependent) * Most recent A1C 6.3% * SSI while inpatient for Goal BSG 110-140 * Accucheck ACHS #Hyperlipidemia * Controlled w/ last LDL 51 on OP labs * Continue home statin DVT Ppx: coumadin Code status: DNR PCP: Dr. Devora Pinto Dispo: PCU Admission and Anticipated Discharge Date Admission Date: January 14, 2025 Subjective Pt seen in follow up of hypoxia 2/2 CHF, also appears pt has UTI Contacted by RN as pt's BP on low side as she is sitting up in chair, and currently on IV lasix Pt found sitting up in chair in NAD, feeling well, just about to have lunch. Her son is present at the bedside. Pt says she has not been up from bed yet since coming to the hospital. Her shortness of breath is much improved, LE edema improved, overall feels much better. Denies any chest pain. Currently off suppl. O2. Discussed with RN - will be re-checking her vitals and then will discuss further w/ cardiology. If BP continues to be low, will have pt back in bed after lunch. INR elevated at 7.2 - hold warfarin, monitor INR Review of Systems Review of Systems: All systems reviewed & are unremarkable except as noted in Subjective Physical Exam Physical Exam: Constitutional: obese elderly F in NAD HEENT: Mucous membranes moist. Lungs: Decreased breath sounds, ctab, no wheezing CV: regular, systolic murmur Abdomen: Soft, nontender, nondistended Extremities: Trace ankle, pretibial edema, improved Neuro: awake, alert, speech fluent, answers appropriately, moves extremities Psych: Cooperative, normal mood Results & Data Results & Data Vital Signs (Past 12 Hours) Vital Signs Temp Pulse Pulse Resp BP Pulse Ox O2 Del Method 01/16/25 07:22 36.5 C 70 18 133/82 97 Nasal Cannula 01/16/25 02:33 36.5 C 68 20 107/62 93 Nasal Cannula 01/15/25 22:19 36.8 C 64 18 111/71 94 Nasal Cannula 01/15/25 21:42 64 O2 Flow Rate 01/16/25 07:22 2 01/16/25 02:33 01/15/25 22:19 01/15/25 21:42 Laboratory Results 01/16/25 01/16/25 01/16/25 Range/Units 10:50 07:26 05:48 WBC 7.91 (4.8-10.8) K/ul RBC 3.57 L (4.20-5.40) M/uL Hgb 10.3 L (12.0-16.0) g/dl Hct 32.4 L (37.0-47.0) % MCV 90.8 (80.0-100.0) fL MCH 28.9 (25.0-34.0) pg MCHC 31.8 L (32.0-36.0) g/dL RDW Std Deviation 47.4 H (36.4-46.3) fL RDW Coeff of Anupama 14.6 H (11.5-14.5) % Plt Count 243 (130-400) K/uL MPV 10.1 (9.4-12.4) fL PT 65.3 H (9.0-12.0) Seconds INR 7.2 H* (0.9-1.1) Sodium 140 (136-145) mmol/L Potassium 3.7 (3.5-5.1) mmol/L Chloride 103 (98-107) mmol/L Carbon Dioxide 26 (21-32) mmol/L Anion Gap 11 (3-11) BUN 30 H (6-23) mg/dl Creatinine 1.69 H (0.6-1.2) mg/dl Est Cr Clr Drug Dosing 31.2 ml/min eGFR 30.91 BUN/Creatinine Ratio 17.8 (10-20) Glucose 97 (70-99(Fasting)) mg/dl POC Glucose 168 H 95 (70-99) mg/dl Calcium 8.6 (8.6-10.3) mg/dl Phosphorus 4.8 D (2.5-4.9) mg/dl Magnesium 2.0 (1.7-2.4) mg/dl 01/15/25 01/15/25 Range/Units 20:07 16:19 WBC (4.8-10.8) K/ul RBC (4.20-5.40) M/uL Hgb (12.0-16.0) g/dl Hct (37.0-47.0) % MCV (80.0-100.0) fL MCH (25.0-34.0) pg MCHC (32.0-36.0) g/dL RDW Std Deviation (36.4-46.3) fL RDW Coeff of Anupama (11.5-14.5) % Plt Count (130-400) K/uL MPV (9.4-12.4) fL PT (9.0-12.0) Seconds INR (0.9-1.1) Sodium (136-145) mmol/L Potassium (3.5-5.1) mmol/L Chloride (98-107) mmol/L Carbon Dioxide (21-32) mmol/L Anion Gap (3-11) BUN (6-23) mg/dl Creatinine (0.6-1.2) mg/dl Est Cr Clr Drug Dosing ml/min eGFR BUN/Creatinine Ratio (10-20) Glucose (70-99(Fasting)) mg/dl POC Glucose 117 H 110 H (70-99) mg/dl Calcium (8.6-10.3) mg/dl Phosphorus (2.5-4.9) mg/dl Magnesium (1.7-2.4) mg/dl Medications Administered Current Inpatient Medications Acetaminophen (Acetaminophen 325 Mg Tab) 650 mg PO Q4H PRN PRN Reason: Pain or Fever Stop: 02/13/25 16:40 Last Admin: 01/14/25 22:50 Dose: 650 mg Aspirin (Aspirin 81 Mg Ectab) 81 mg PO DAILY [facility] Stop: 02/14/25 08:59 Last Admin: 01/16/25 08:15 Dose: 81 mg Atorvastatin Calcium (Atorvastatin 10 Mg Tab) 10 mg PO HS [facility] Stop: 02/13/25 20:59 Last Admin: 01/15/25 20:44 Dose: 10 mg Carvedilol (Carvedilol 12.5 Mg Tab) 12.5 mg PO BID [facility] Stop: 02/13/25 20:59 Last Admin: 01/16/25 08:12 Dose: 12.5 mg Cyanocobalamin (Cyanocobalamin (B-12) 500 Mcg Tablet) 1,000 mcg PO HS [facility] Stop: 02/13/25 20:59 Last Admin: 01/15/25 20:44 Dose: 1,000 mcg Dextrose (Dextrose 50% 50 Ml Syringe) 25 - 50 ml IV UD PRN; Protocol PRN Reason: Hypoglycemia Protocol Stop: 02/13/25 16:40 Ferrous Sulfate (Ferrous Sulfate 325 Mg Tab) 325 mg PO MoWeFr@0900 [facility] Stop: 02/13/25 16:59 Last Admin: 01/16/25 08:15 Dose: 325 mg Gabapentin (Gabapentin 400 Mg Cap) 400 mg PO TID [facility] Stop: 02/13/25 20:59 Last Admin: 01/16/25 08:13 Dose: 400 mg Glucagon (Glucagon For Inj 1 Mg Vial) 1 mg SQ UD PRN; Protocol PRN Reason: Hypoglycemia Protocol Stop: 02/13/25 16:40 Glucose (Glucose 40% Gel 15 Gm Tube) 15 - 30 gm PO UD PRN; Protocol PRN Reason: Hypoglycemia Protocol Stop: 02/13/25 16:40 Glucose (Glucose 10 Tab/Tube) 4 - 8 tab PO UD PRN; Protocol PRN Reason: Hypoglycemia Protocol Stop: 02/13/25 16:40 Ceftriaxone Sodium (Rocephin) 2,000 mg in 50 mls @ 100 mls/hr IV Q24H [facility] Stop: 01/21/25 08:59 Last Infusion: 01/16/25 11:41 Dose: Infused Insulin Aspart (Insulin Aspart Per Unit Charge) 0 units SC ACHS [facility] Stop: 02/13/25 16:59 Last Admin: 01/16/25 08:10 Dose: Not Given Miscellaneous (Carbohydrates For Hypoglycemia ) 15 - 30 gm PO UD PRN PRN Reason: Hypoglycemia Protocol Stop: 02/13/25 16:40 Miscellaneous Information (Pharmacy Glycemic Mgmt Consult) 1 each N/A UD PRN PRN Reason: Consult Stop: 02/13/25 16:40 Polyethylene Glycol (Polyethylene (Miralax) 17 Gm Pack) 17 gm PO DAILY PRN PRN Reason: Constipation Stop: 02/13/25 16:40 Warfarin Sodium (Warfarin Sod 4 Mg Tab) 8 mg PO MoWeFr@1600 [facility] Stop: 02/13/25 15:59 Last Admin: 01/14/25 18:25 Dose: 8 mg Warfarin Sodium (Warfarin Sod 4 Mg Tab) 4 mg PO SuTuThSa@1600 [facility] Stop: 02/14/25 15:59 Last Admin: 01/15/25 17:20 Dose: 4 mg
[2025-01-16] MEDS: cefTRIAXone SODIUM 2,000 MG/50 ML BAG IV SCH (10:58)
[2025-01-16] MEDS: POTASSIUM CHLORIDE CRTAB 20 MEQ TABCR PO ONE (12:36)
--- NOTE | 2025-01-16 13:32 | XRay Report ---
XR chest 2V PA/lateral CLINICAL HISTORY: hypoxia COMPARISON STUDY: 01/14/2025 FINDINGS: Stable CABG. Stable cardiomegaly with mild pulmonary vascular congestion. No consolidation or pleural effusion. No pneumothorax. IMPRESSION: Mild CHF. ACT 112: Negative or not required by law. Electronically signed by: Addison Hdz M.D. 01/16/2025 1:30 PM
--- NOTE | 2025-01-17 07:49 | Pharmacy Report ---
Pharmacy Glycemic Sign Off Nt - Date of Service January 17, 2025 - Assessment & Plan ASSESSMENT: * Pharmacy was consulted by Marion YARBROUGH on 01/14 for glycemic control and to write orders per [facility] inpatient glycemic control protocol. * Major changes made by pharmacy to antidiabetic regimen include: * added novolog scale * Patient has been receiving minimal insulin over last 48 hours (<5 units / day) PLAN FOR INPATIENT GLYCEMIC CONTROL: No changes needed to current regimen. * Basal insulin on hold * Continue NovoLog per scale ACHS/Q6hrs while NPO * Goal range = 120-160 mg/dl * CF = 30 mg/dl/unit * CR = 1 unit for ever 20 g CHO consumed * Pharmacy is signing off of glycemic consult and will no longer be making adjustments to inpatient regimen. Please feel free to re-consult if needed. Thank you.
[2025-01-17 07:58] LABS: Hematocrit (blood only) 37.7 % (37.0-47.0); Hemoglobin 11.9 g/dl (12.0-16.0); Mean Corpuscular Hemoglobin 28.5 pg (25.0-34.0); Mean Corpuscular Volume 90.2 fL (80.0-100.0); Platelet Count 272 K/uL (130-400); RDW Standard Deviation 47.0 fL (36.4-46.3); Red Blood Count 4.18 M/uL (4.20-5.40); White Blood Count 7.24 K/ul (4.8-10.8)
[2025-01-17 08:17] LABS: Anion Gap 11.0 (3-11); Blood Urea Nitrogen 42.0 mg/dl (6-23); Calcium 9.3 mg/dl (8.6-10.3); Carbon Dioxide 27.0 mmol/L (21-32); Chloride 100.0 mmol/L (98-107); Creatinine Clr Calc Pharmacy 31.1 ml/min; Glucose 107.0 mg/dl (70-99(Fasting)); Magnesium 2.2 mg/dl (1.7-2.4); Potassium 4.0 mmol/L (3.5-5.1); Sodium 138.0 mmol/L (136-145)
[2025-01-17 08:21] LABS: INR 1.7 (0.9-1.1); Prothrombin Time 17.2 Seconds (9.0-12.0)
--- NOTE | 2025-01-17 10:52 | Cardiology Progress Note ---
Date of Service January 17, 2025 Assessment & Plan (1) Acute diastolic heart failure due to valvular disease: Plan 75 yo woman presenting with dyspnea and LE edema Dx: HFpEF Consult - HFpEF * Marginal SBP * UA - trace protein Hx: * S/P SAVR ([address] Fan - Bioprosthetic Valve) * Severe Pulmonary HTN * ASHLEY on CPAP * DM * Hyperlipidemia * Hypertension * Right - Breast CA * CKD Plans: * Plans for CAYLA with planimetry at [facility] on 01-22-2025; concerns about patient - prosthesis mismatch * Had been on systemic anticoagulation to ensure she is covered for Valve Thrombosis * CXR - mild CHF noted, S/P Sternotomy * Patient appear euvolemic on examination * Wean O2 - doing this now * PT/OT - ambulatory sat monitor * Marginal Systolic BP - SBP 106 mmHg * OFF Lisinopril * OFF Amlodipine * Decrease Coreg to 6.25 mg po BID * K+ goal 4.4-5 * Kdur 40 meq po x 1 * Mag goal >2 * Resume Maintenance PO Torsemide - 30 mg po per day * INR 1.7 (was 7) - no active bleeding; HCT Stable * Resume Coumadin at reduced dose * Goal INR 2-4 * Rx for UTI - define course * Please call back with additional questions * 50 min spent addressing challenges, educating and advancing daily plan of care Nickolas Herndon Admission and Anticipated Discharge Date Admission Date: January 14, 2025 Subjective Events Overnight: Telemetry: Subjective: Review of Systems Review of Systems: All systems reviewed & are unremarkable except as noted in HPI & below Physical Exam Physical Exam: Obese Glasses No elevation in JVP S1S2 2/6 Systolic Murmur CTA B No C/C/E Warm and perfusing Results & Data Vital Signs (Past 12 Hours) Vital Signs Temp Pulse Pulse Resp BP Pulse Ox O2 Del Method 01/17/25 08:44 55 L 01/17/25 08:44 Room Air 01/17/25 07:33 36.3 C L 64 16 124/78 95 Nasal Cannula 01/17/25 02:58 36.6 C 62 18 101/61 98 Nasal Cannula 01/16/25 23:00 62 O2 Flow Rate 01/17/25 08:44 01/17/25 08:44 01/17/25 07:33 2 01/17/25 02:58 01/16/25 23:00 Laboratory Results Coagulation 01/17/25 Range/Units 07:28 PT 17.2 H (9.0-12.0) Seconds CBC 01/17/25 Range/Units 07:28 WBC 7.24 (4.8-10.8) K/ul RBC 4.18 L (4.20-5.40) M/uL Hgb 11.9 L (12.0-16.0) g/dl Hct 37.7 (37.0-47.0) % Plt Count 272 (130-400) K/uL Comprehensive Metabolic Panel 01/17/25 Range/Units 07:28 Sodium 138 (136-145) mmol/L Potassium 4.0 (3.5-5.1) mmol/L Chloride 100 (98-107) mmol/L Carbon Dioxide 27 (21-32) mmol/L BUN 42 H (6-23) mg/dl Creatinine 1.70 H (0.6-1.2) mg/dl Glucose 107 H (70-99(Fasting)) mg/dl Calcium 9.3 (8.6-10.3) mg/dl Intake and Output 01/16/25 01/17/25 01/17/25 22:59 06:59 14:59 Intake Total 200 / 970 120 / 970 50 / 50 Balance 200 / 470 120 / 470 50 / 50 Intake: IV 50 / 50 cefTRIAXone SODIUM 2,000 mg In 50 / 50 50 ml @ 100 mls/hr IV Q24H [facility] Rx#:[id number] Oral 200 / 920 120 / 920 Diagnostic Findings CXR: 01-16-2025 Mild CHF Medications Administered Current Inpatient Medications Acetaminophen (Acetaminophen 325 Mg Tab) 650 mg PO Q4H PRN PRN Reason: Pain or Fever Stop: 02/13/25 16:40 Last Admin: 01/14/25 22:50 Dose: 650 mg Aspirin (Aspirin 81 Mg Ectab) 81 mg PO DAILY [facility] Stop: 02/14/25 08:59 Last Admin: 01/17/25 08:24 Dose: 81 mg Atorvastatin Calcium (Atorvastatin 10 Mg Tab) 10 mg PO HS [facility] Stop: 02/13/25 20:59 Last Admin: 01/16/25 20:34 Dose: 10 mg Carvedilol (Carvedilol 12.5 Mg Tab) 12.5 mg PO BID [facility] Stop: 02/13/25 20:59 Last Admin: 01/17/25 08:23 Dose: 12.5 mg Cyanocobalamin (Cyanocobalamin (B-12) 500 Mcg Tablet) 1,000 mcg PO HS [facility] Stop: 02/13/25 20:59 Last Admin: 01/16/25 20:34 Dose: 1,000 mcg Dextrose (Dextrose 50% 50 Ml Syringe) 25 - 50 ml IV UD PRN; Protocol PRN Reason: Hypoglycemia Protocol Stop: 02/13/25 16:40 Ferrous Sulfate (Ferrous Sulfate 325 Mg Tab) 325 mg PO MoWeFr@0900 [facility] Stop: 02/13/25 16:59 Last Admin: 01/16/25 08:15 Dose: 325 mg Gabapentin (Gabapentin 400 Mg Cap) 400 mg PO TID [facility] Stop: 02/13/25 20:59 Last Admin: 01/17/25 08:23 Dose: 400 mg Glucagon (Glucagon For Inj 1 Mg Vial) 1 mg SQ UD PRN; Protocol PRN Reason: Hypoglycemia Protocol Stop: 02/13/25 16:40 Glucose (Glucose 40% Gel 15 Gm Tube) 15 - 30 gm PO UD PRN; Protocol PRN Reason: Hypoglycemia Protocol Stop: 02/13/25 16:40 Glucose (Glucose 10 Tab/Tube) 4 - 8 tab PO UD PRN; Protocol PRN Reason: Hypoglycemia Protocol Stop: 02/13/25 16:40 Ceftriaxone Sodium (Rocephin) 2,000 mg in 50 mls @ 100 mls/hr IV Q24H [facility] Stop: 01/21/25 08:59 Last Infusion: 01/17/25 08:59 Dose: Infused Insulin Aspart (Insulin Aspart Per Unit Charge) 0 units SC ACHS [facility] Stop: 02/13/25 16:59 Last Admin: 01/17/25 08:23 Dose: 1 units Miscellaneous (Carbohydrates For Hypoglycemia ) 15 - 30 gm PO UD PRN PRN Reason: Hypoglycemia Protocol Stop: 02/13/25 16:40 Polyethylene Glycol (Polyethylene (Miralax) 17 Gm Pack) 17 gm PO DAILY PRN PRN Reason: Constipation Stop: 02/13/25 16:40 Warfarin Sodium (Warfarin Sod 4 Mg Tab) 8 mg PO MoWeFr@1600 [facility] Stop: 02/13/25 15:59 Last Admin: 01/14/25 18:25 Dose: 8 mg Warfarin Sodium (Warfarin Sod 4 Mg Tab) 4 mg PO SuTuThSa@1600 [facility] Stop: 02/14/25 15:59 Last Admin: 01/15/25 17:20 Dose: 4 mg PG Care Time/CCT Total # of Minutes Spent Total Time Spent with Patient: Total time spent is greater than 50% in coordination of care (as documented) at patient's floor/unit and/or counseling patient: Coding Level of Care Code 24765 SUB INP/OBS CARE 3/50MIN Diagnoses Acute diastolic heart failure due to valvular disease I50.31; I38
--- NOTE | 2025-01-17 13:55 | Hospitalist Progress Note ---
Date of Service January 17, 2025 Assessment & Plan (1) Acute hypoxemic respiratory failure: (2) Acute diastolic heart failure due to valvular disease: (3) Severe aortic stenosis: (4) Seizure disorder: (5) Hypokalemia: (6) Chronic renal failure (CRF), stage 3b: (7) Sleep apnea: (8) Diabetes mellitus, type 2: Plan (1) Acute hypoxemic respiratory failure: Plan: Patient is a 75 year old F with a past medical history of SVT, mitral regurg, se marko calcific aortic stenosis s/p AVR in 2016 on anticoagulation, pulmonary hypertension, ASHLEY, DM Type II non-insulin dependent, CHD Stg III, HLD, seizure d/o, right breast carcinoma w/ mets s/p lumpectomy and chemo now in remission, presenting with shortness of breath since Tuesday. Patient reports always feeling short of breath, but noticed swelling to her ankles on Tuesday and she became short of breath with minimal exertion. Denies chest pain, no cough. She doubled her torsemide dose yesterday with no relief of symptoms. Acute hypoxic respiratory failure 2/2 new onset CHF exacerbation, Aortic stenosis Patient presents acute on chronic heart failure due to valvular dysfunction/aortic stenosis. Has responded well to diuresis. * Chest Xray w/ mod interstitial pulmonary edema; Small B/L pleural effusions; BNP 417 on admit * On IV Furosemide per Cardiology, Holding home torsemide -> now resume tors emide at 30 mg daily * Cardiology consulted , and following closely * Echo 06/2024 showing LVEF 60-64%, LA severely enlarged. mod-sever MR; AV prosthesis systolic gradients abnormal suggesting moderate obstruction;Current Echo - peak CW velocity across the aortic valve prosthesis on echocardiogram performed at [place] on 01/14/2025 was 3 m/s as compared to 3.5 m/s at the time of the outpatient echocardiogram within the [facility] [place] system on 07/20/2024. At that time the mean aortic valve prosthetic gradient was 26 mmHg, dimensionless index 0.30. Severe mitral annular calcification was noted at that time with moderate to severe mitral regurgitation, moderate tricuspid regurgitation, and the pulmonary artery systolic pressure was severely elevated, estimated to be 86 mmHg. Ejection fraction on echocardiogram performed yesterday as well as the recent outpatient echocardiogram was normal. * EKG showing NSR vent rate 91 bpm, QTc 496- hold meds with QT prolong * Wean oxygen as able * PT consult ordered - recommend to return home Anemia * Hgb 11, Hct 35, RDW 48; baseline labs * Follows [facility] for anemia- on Iron supplementation 3x/week * Continue home iron * Continue home anticoagulation with warfarin; follows anticoag clinic via [facility] * INR 7.2 yesterday, now 1.7 #Hypertension * Managed with triple agents at home- lisinopril, amlodipine, carvedilol * lisinopril, amlodipine now stopped, coreg dose decreased #ASHLEY * Continue home Bipap * Wean O2 as needed to maintain sats >92% UTI UA w/ nitrites, + bacteria Ucultx posit. for Klebsiella Cont. ceftriaxone for now #Diabetes Mellitus Type II (non-insulin dependent) * Most recent A1C 6.3% * SSI while inpatient for Goal BSG 110-140 * Accucheck ACHS #Hyperlipidemia * Controlled w/ last LDL 51 on OP labs * Continue home statin DVT Ppx: coumadin Code status: DNR PCP: Dr. Devora Pinto Dispo: PCU Admission and Anticipated Discharge Date Admission Date: January 14, 2025 Subjective Pt seen in follow up of hypoxia 2/2 CHF, also appears pt has UTI Pt is sitting up in chair in NAD, feeling well, currently on RA, says they have been trying to wean her off oxygen. Her son is present at the bedside. Denies any chest pain, or shortness of breath. LE edema much improved. INR elevated at 7.2 yesterday - held warfarin, now INR down to 1.7 Ucultx posit. for Klebsiella Review of Systems Review of Systems: All systems reviewed & are unremarkable except as noted in Subjective Physical Exam Physical Exam: Constitutional: obese elderly F in NAD HEENT: Mucous membranes moist. Lungs: Decreased breath sounds, ctab, no wheezing CV: regular, systolic murmur Abdomen: Soft, nontender, nondistended Extremities: Trace ankle, pretibial edema, improved Neuro: awake, alert, speech fluent, answers appropriately, moves extremities Psych: Cooperative, normal mood Results & Data Results & Data Vital Signs (Past 12 Hours) Vital Signs Temp Pulse Pulse Resp BP Pulse Ox O2 Del Method 01/17/25 11:20 91 Room Air 01/17/25 10:52 36.6 C 68 16 106/74 95 Nasal Cannula 01/17/25 08:44 55 L 01/17/25 08:44 Room Air 01/17/25 07:33 36.3 C L 64 16 124/78 95 Nasal Cannula 01/17/25 02:58 36.6 C 62 18 101/61 98 Nasal Cannula O2 Flow Rate 01/17/25 11:20 01/17/25 10:52 2 01/17/25 08:44 01/17/25 08:44 01/17/25 07:33 2 01/17/25 02:58 Laboratory Results 01/17/25 01/17/25 01/17/25 Range/Units 10:49 07:30 07:28 WBC 7.24 (4.8-10.8) K/ul RBC 4.18 L (4.20-5.40) M/uL Hgb 11.9 L (12.0-16.0) g/dl Hct 37.7 (37.0-47.0) % MCV 90.2 (80.0-100.0) fL MCH 28.5 (25.0-34.0) pg MCHC 31.6 L (32.0-36.0) g/dL RDW Std Deviation 47.0 H (36.4-46.3) fL RDW Coeff of Anupama 14.5 (11.5-14.5) % Plt Count 272 (130-400) K/uL MPV 10.5 (9.4-12.4) fL PT 17.2 H (9.0-12.0) Seconds INR 1.7 H (0.9-1.1) Sodium 138 (136-145) mmol/L Potassium 4.0 (3.5-5.1) mmol/L Chloride 100 (98-107) mmol/L Carbon Dioxide 27 (21-32) mmol/L Anion Gap 11 (3-11) BUN 42 H (6-23) mg/dl Creatinine 1.70 H (0.6-1.2) mg/dl Est Cr Clr Drug Dosing 31.1 ml/min eGFR 30.70 BUN/Creatinine Ratio 24.7 H (10-20) Glucose 107 H (70-99(Fasting)) mg/dl POC Glucose 130 H 113 H (70-99) mg/dl Calcium 9.3 (8.6-10.3) mg/dl Phosphorus 4.7 (2.5-4.9) mg/dl Magnesium 2.2 (1.7-2.4) mg/dl 01/16/25 01/16/25 Range/Units 20:08 16:21 WBC (4.8-10.8) K/ul RBC (4.20-5.40) M/uL Hgb (12.0-16.0) g/dl Hct (37.0-47.0) % MCV (80.0-100.0) fL MCH (25.0-34.0) pg MCHC (32.0-36.0) g/dL RDW Std Deviation (36.4-46.3) fL RDW Coeff of Anupama (11.5-14.5) % Plt Count (130-400) K/uL MPV (9.4-12.4) fL PT (9.0-12.0) Seconds INR (0.9-1.1) Sodium (136-145) mmol/L Potassium (3.5-5.1) mmol/L Chloride (98-107) mmol/L Carbon Dioxide (21-32) mmol/L Anion Gap (3-11) BUN (6-23) mg/dl Creatinine (0.6-1.2) mg/dl Est Cr Clr Drug Dosing ml/min eGFR BUN/Creatinine Ratio (10-20) Glucose (70-99(Fasting)) mg/dl POC Glucose 128 H 113 H (70-99) mg/dl Calcium (8.6-10.3) mg/dl Phosphorus (2.5-4.9) mg/dl Magnesium (1.7-2.4) mg/dl Medications Administered Current Inpatient Medications Acetaminophen (Acetaminophen 325 Mg Tab) 650 mg PO Q4H PRN PRN Reason: Pain or Fever Stop: 02/13/25 16:40 Last Admin: 01/14/25 22:50 Dose: 650 mg Aspirin (Aspirin 81 Mg Ectab) 81 mg PO DAILY ROMAINE Stop: 02/14/25 08:59 Last Admin: 01/17/25 08:24 Dose: 81 mg Atorvastatin Calcium (Atorvastatin 10 Mg Tab) 10 mg PO HS ROMAINE Stop: 02/13/25 20:59 Last Admin: 01/16/25 20:34 Dose: 10 mg Carvedilol (Carvedilol 12.5 Mg Tab) 12.5 mg PO BID ROMAINE Stop: 02/13/25 20:59 Last Admin: 01/17/25 08:23 Dose: 12.5 mg Cyanocobalamin (Cyanocobalamin (B-12) 500 Mcg Tablet) 1,000 mcg PO HS [facility] Stop: 02/13/25 20:59 Last Admin: 01/16/25 20:34 Dose: 1,000 mcg Dextrose (Dextrose 50% 50 Ml Syringe) 25 - 50 ml IV UD PRN; Protocol PRN Reason: Hypoglycemia Protocol Stop: 02/13/25 16:40 Ferrous Sulfate (Ferrous Sulfate 325 Mg Tab) 325 mg PO MoWeFr@0900 ROMAINE Stop: 02/13/25 16:59 Last Admin: 01/16/25 08:15 Dose: 325 mg Gabapentin (Gabapentin 400 Mg Cap) 400 mg PO TID ROMAINE Stop: 02/13/25 20:59 Last Admin: 01/17/25 13:08 Dose: 400 mg Glucagon (Glucagon For Inj 1 Mg Vial) 1 mg SQ UD PRN; Protocol PRN Reason: Hypoglycemia Protocol Stop: 02/13/25 16:40 Glucose (Glucose 40% Gel 15 Gm Tube) 15 - 30 gm PO UD PRN; Protocol PRN Reason: Hypoglycemia Protocol Stop: 02/13/25 16:40 Glucose (Glucose 10 Tab/Tube) 4 - 8 tab PO UD PRN; Protocol PRN Reason: Hypoglycemia Protocol Stop: 02/13/25 16:40 Ceftriaxone Sodium (Rocephin) 2,000 mg in 50 mls @ 100 mls/hr IV Q24H ROMAINE Stop: 01/21/25 08:59 Last Infusion: 01/17/25 08:59 Dose: Infused Insulin Aspart (Insulin Aspart Per Unit Charge) 0 units SC ACHS ROMAINE Stop: 02/13/25 16:59 Last Admin: 01/17/25 12:04 Dose: 2 units Miscellaneous (Carbohydrates For Hypoglycemia ) 15 - 30 gm PO UD PRN PRN Reason: Hypoglycemia Protocol Stop: 02/13/25 16:40 Polyethylene Glycol (Polyethylene (Miralax) 17 Gm Pack) 17 gm PO DAILY PRN PRN Reason: Constipation Stop: 02/13/25 16:40 Warfarin Sodium (Warfarin Sod 4 Mg Tab) 8 mg PO [id number]@1600 ROMAINE Stop: 02/13/25 15:59 Last Admin: 01/14/25 18:25 Dose: 8 mg Warfarin Sodium (Warfarin Sod 4 Mg Tab) 4 mg PO Milton@1600 [facility] Stop: 02/14/25 15:59 Last Admin: 01/15/25 17:20 Dose: 4 mg
[2025-01-18 06:42] LABS: Hematocrit (blood only) 31.4 % (37.0-47.0); Hemoglobin 10.2 g/dl (12.0-16.0); Mean Corpuscular Hemoglobin 29.0 pg (25.0-34.0); Mean Corpuscular Volume 89.2 fL (80.0-100.0); Platelet Count 237 K/uL (130-400); RDW Standard Deviation 45.7 fL (36.4-46.3); Red Blood Count 3.52 M/uL (4.20-5.40); White Blood Count 6.43 K/ul (4.8-10.8)
[2025-01-18 07:03] LABS: Anion Gap 9.0 (3-11); Blood Urea Nitrogen 43.0 mg/dl (6-23); Calcium 9.0 mg/dl (8.6-10.3); Carbon Dioxide 26.0 mmol/L (21-32); Chloride 103.0 mmol/L (98-107); Creatinine Clr Calc Pharmacy 35.9 ml/min; Glucose 118.0 mg/dl (70-99(Fasting)); Magnesium 2.2 mg/dl (1.7-2.4); Potassium 4.3 mmol/L (3.5-5.1); Sodium 138.0 mmol/L (136-145)
[2025-01-18 07:09] LABS: INR 1.3 (0.9-1.1); Prothrombin Time 14.1 Seconds (9.0-12.0)
--- NOTE | 2025-01-18 07:35 | Hospitalist Progress Note ---
Date of Service January 18, 2025 Assessment & Plan (1) Acute hypoxemic respiratory failure: (2) Acute diastolic heart failure due to valvular disease: (3) Severe aortic stenosis: (4) Seizure disorder: (5) Hypokalemia: (6) Chronic renal failure (CRF), stage 3b: (7) Sleep apnea: (8) Diabetes mellitus, type 2: Plan (1) Acute hypoxemic respiratory failure: Plan: Patient is a 75 year old F with a past medical history of SVT, mitral regurg, s evere calcific aortic stenosis s/p AVR in 2016 on anticoagulation, pulmonary hypertension, ASHLEY, DM Type II non-insulin dependent, CHD Stg III, HLD, seizure d/o, right breast carcinoma w/ mets s/p lumpectomy and chemo now in remission, presenting with shortness of breath since Tuesday. Patient reports always feeling short of breath, but noticed swelling to her ankles on Tuesday and she became short of breath with minimal exertion. Denies chest pain, no cough. She doubled her torsemide dose yesterday with no relief of symptoms. Acute hypoxic respiratory failure 2/2 new onset CHF exacerbation, Aortic stenosis Patient presents acute on chronic heart failure due to valvular dysfunction/aortic stenosis. Has responded well to diuresis. * Chest Xray w/ mod interstitial pulmonary edema; Small B/L pleural effusions; BNP 417 on admit * On IV Furosemide per Cardiology, Holding home torsemide -> now resume tor semide at 30 mg daily * Cardiology consulted , and following closely * Echo 06/2024 showing LVEF 60-64%, LA severely enlarged. mod-sever MR; AV prosthesis systolic gradients abnormal suggesting moderate obstruction;Current Echo - peak CW velocity across the aortic valve prosthesis on echocardiogram performed at [place] on 01/14/2025 was 3 m/s as compared to 3.5 m/s at the time of the outpatient echocardiogram within the [facility] system on 07/20/2024. At that time the mean aortic valve prosthetic gradient was 26 mmHg, dimensionless index 0.30. Severe mitral annular calcification was noted at that time with moderate to severe mitral regurgitation, moderate tricuspid regurgitation, and the pulmonary artery systolic pressure was severely elevated, estimated to be 86 mmHg. Ejection fraction on echocardiogram performed yesterday as well as the recent outpatient echocardiogram was normal. * EKG showing NSR vent rate 91 bpm, QTc 496- hold meds with QT prolong * Wean oxygen as able, currently on RA * PT consult ordered - recommend to return home Anemia * Hgb 11, Hct 35, RDW 48; baseline labs * Follows [facility] for anemia- on Iron supplementation 3x/week * Continue home iron * Continue home anticoagulation with warfarin; follows anticoag clinic via [facility] * INR 7.2 -> 1.7 -> 1.3, warfarin to be given this AM and will re-check INR tmrw AM. Will need outpt INR re-check likely on Tuesday #Hypertension * Managed with triple agents at home- lisinopril, amlodipine, carvedilol * lisinopril, amlodipine now stopped, coreg dose decreased #ASHLEY * Continue home Bipap * Wean O2 as needed to maintain sats >92% UTI UA w/ nitrites, + bacteria Ucultx posit. for Klebsiella Cont. ceftriaxone for now #Diabetes Mellitus Type II (non-insulin dependent) * Most recent A1C 6.3% * SSI while inpatient for Goal BSG 110-140 * Accucheck ACHS #Hyperlipidemia * Controlled w/ last LDL 51 on OP labs * Continue home statin DVT Ppx: coumadin Code status: DNR PCP: Dr. Devora Pinto Dispo: PCU Admission and Anticipated Discharge Date Admission Date: January 14, 2025 Subjective Pt seen in follow up of hypoxia 2/2 CHF, also appears pt has UTI Pt is sitting up in chair in NAD, feeling well, currently on RA Denies any chest pain, or shortness of breath. LE edema much improved. INR fluctuating, will re-check INR tmrw AM. Plan to DC pt over the weekend , will likely need INR re-checked on Tuesday as outpt. She is scheduled for CAYLA on Tuesday at [place] Ucultx posit. for Klebsiella. Discussed allergy to abx w/ the pt - pt unclear, thinks that her mother had allergy to sulfa drugs. Review of Systems Review of Systems: All systems reviewed & are unremarkable except as noted in Subjective Physical Exam Physical Exam: Constitutional: obese elderly F in NAD HEENT: Mucous membranes moist. Lungs: Decreased breath sounds, ctab, no wheezing CV: regular, systolic murmur Abdomen: Soft, nontender, nondistended Extremities: Trace ankle, pretibial edema, improved Neuro: awake, alert, speech fluent, answers appropriately, moves extremities Psych: Cooperative, normal mood Results & Data Results & Data Vital Signs (Past 12 Hours) Vital Signs Temp Pulse Pulse Resp BP Pulse Ox O2 Del Method 01/18/25 03:00 36.6 C 67 18 101/55 L 92 Room Air 01/17/25 23:49 71 01/17/25 23:15 36.7 C 65 18 107/68 94 Room Air Laboratory Results 01/18/25 01/18/25 01/17/25 Range/Units 07:27 06:23 20:06 WBC 6.43 (4.8-10.8) K/ul RBC 3.52 L (4.20-5.40) M/uL Hgb 10.2 L (12.0-16.0) g/dl Hct 31.4 L (37.0-47.0) % MCV 89.2 (80.0-100.0) fL MCH 29.0 (25.0-34.0) pg MCHC 32.5 (32.0-36.0) g/dL RDW Std Deviation 45.7 (36.4-46.3) fL RDW Coeff of Anupama 14.3 (11.5-14.5) % Plt Count 237 (130-400) K/uL MPV 9.9 (9.4-12.4) fL PT 14.1 H (9.0-12.0) Seconds INR 1.3 H (0.9-1.1) Sodium 138 (136-145) mmol/L Potassium 4.3 (3.5-5.1) mmol/L Chloride 103 (98-107) mmol/L Carbon Dioxide 26 (21-32) mmol/L Anion Gap 9 (3-11) BUN 43 H (6-23) mg/dl Creatinine 1.47 H (0.6-1.2) mg/dl Est Cr Clr Drug Dosing 35.9 ml/min eGFR 36.54 BUN/Creatinine Ratio 29.3 H (10-20) Glucose 118 H (70-99(Fasting)) mg/dl POC Glucose 120 H 113 H (70-99) mg/dl Calcium 9.0 (8.6-10.3) mg/dl Phosphorus 4.6 (2.5-4.9) mg/dl Magnesium 2.2 (1.7-2.4) mg/dl 01/17/25 01/17/25 01/17/25 Range/Units 15:41 10:49 07:28 WBC 7.24 (4.8-10.8) K/ul RBC 4.18 L (4.20-5.40) M/uL Hgb 11.9 L (12.0-16.0) g/dl Hct 37.7 (37.0-47.0) % MCV 90.2 (80.0-100.0) fL MCH 28.5 (25.0-34.0) pg MCHC 31.6 L (32.0-36.0) g/dL RDW Std Deviation 47.0 H (36.4-46.3) fL RDW Coeff of Anupama 14.5 (11.5-14.5) % Plt Count 272 (130-400) K/uL MPV 10.5 (9.4-12.4) fL PT 17.2 H (9.0-12.0) Seconds INR 1.7 H (0.9-1.1) Sodium 138 (136-145) mmol/L Potassium 4.0 (3.5-5.1) mmol/L Chloride 100 (98-107) mmol/L Carbon Dioxide 27 (21-32) mmol/L Anion Gap 11 (3-11) BUN 42 H (6-23) mg/dl Creatinine 1.70 H (0.6-1.2) mg/dl Est Cr Clr Drug Dosing 31.1 ml/min eGFR 30.70 BUN/Creatinine Ratio 24.7 H (10-20) Glucose 107 H (70-99(Fasting)) mg/dl POC Glucose 101 H 130 H (70-99) mg/dl Calcium 9.3 (8.6-10.3) mg/dl Phosphorus 4.7 (2.5-4.9) mg/dl Magnesium 2.2 (1.7-2.4) mg/dl Medications Administered Current Inpatient Medications Acetaminophen (Acetaminophen 325 Mg Tab) 650 mg PO Q4H PRN PRN Reason: Pain or Fever Stop: 02/13/25 16:40 Last Admin: 01/18/25 03:21 Dose: 650 mg Aspirin (Aspirin 81 Mg Ectab) 81 mg PO DAILY ROMAINE Stop: 02/14/25 08:59 Last Admin: 01/17/25 08:24 Dose: 81 mg Atorvastatin Calcium (Atorvastatin 10 Mg Tab) 10 mg PO HS ROMAINE Stop: 02/13/25 20:59 Last Admin: 01/17/25 22:06 Dose: 10 mg Carvedilol (Carvedilol 12.5 Mg Tab) 12.5 mg PO BID ROMAINE Stop: 02/13/25 20:59 Last Admin: 01/17/25 22:07 Dose: 12.5 mg Cyanocobalamin (Cyanocobalamin (B-12) 500 Mcg Tablet) 1,000 mcg PO HS ROMAINE Stop: 02/13/25 20:59 Last Admin: 01/17/25 22:07 Dose: 1,000 mcg Dextrose (Dextrose 50% 50 Ml Syringe) 25 - 50 ml IV UD PRN; Protocol PRN Reason: Hypoglycemia Protocol Stop: 02/13/25 16:40 Ferrous Sulfate (Ferrous Sulfate 325 Mg Tab) 325 mg PO MoWeFr@0900 ROMAINE Stop: 02/13/25 16:59 Last Admin: 01/16/25 08:15 Dose: 325 mg Gabapentin (Gabapentin 400 Mg Cap) 400 mg PO TID ROMAINE Stop: 02/13/25 20:59 Last Admin: 01/17/25 22:07 Dose: 400 mg Glucagon (Glucagon For Inj 1 Mg Vial) 1 mg SQ UD PRN; Protocol PRN Reason: Hypoglycemia Protocol Stop: 02/13/25 16:40 Glucose (Glucose 40% Gel 15 Gm Tube) 15 - 30 gm PO UD PRN; Protocol PRN Reason: Hypoglycemia Protocol Stop: 02/13/25 16:40 Glucose (Glucose 10 Tab/Tube) 4 - 8 tab PO UD PRN; Protocol PRN Reason: Hypoglycemia Protocol Stop: 02/13/25 16:40 Ceftriaxone Sodium (Rocephin) 2,000 mg in 50 mls @ 100 mls/hr IV Q24H ROMAINE Stop: 01/21/25 08:59 Last Infusion: 01/17/25 08:59 Dose: Infused Insulin Aspart (Insulin Aspart Per Unit Charge) 0 units SC ACHS ROMAINE Stop: 02/13/25 16:59 Last Admin: 01/17/25 21:37 Dose: Not Given Miscellaneous (Carbohydrates For Hypoglycemia ) 15 - 30 gm PO UD PRN PRN Reason: Hypoglycemia Protocol Stop: 02/13/25 16:40 Polyethylene Glycol (Polyethylene (Miralax) 17 Gm Pack) 17 gm PO DAILY PRN PRN Reason: Constipation Stop: 02/13/25 16:40 Torsemide (Torsemide 10 Mg Tab) [facility] [place] Stop: 02/17/25 08:59 Warfarin Sodium (Warfarin Sod 4 Mg Tab) 8 mg PO [email or web address]@1600 [facility] Stop: 02/13/25 15:59 Last Admin: 01/14/25 18:25 Dose: 8 mg Warfarin Sodium (Warfarin Sod 4 Mg Tab) 4 mg PO [id number]@1600 [facility] Stop: 02/14/25 15:59 Last Admin: 01/15/25 17:20 Dose: 4 mg
[2025-01-18] MEDS: TORSEMIDE 10 MG TAB PO SCH (08:19)
[2025-01-18] MEDS: WARFARIN SOD 4 MG TAB PO ONE (10:37)
[2025-01-19 05:23] LABS: Hematocrit (blood only) 32.6 % (37.0-47.0); Hemoglobin 10.5 g/dl (12.0-16.0); Mean Corpuscular Hemoglobin 28.8 pg (25.0-34.0); Mean Corpuscular Volume 89.3 fL (80.0-100.0); Platelet Count 245 K/uL (130-400); RDW Standard Deviation 45.6 fL (36.4-46.3); Red Blood Count 3.65 M/uL (4.20-5.40); White Blood Count 6.41 K/ul (4.8-10.8)
[2025-01-19 05:35] LABS: Anion Gap 9.0 (3-11); Blood Urea Nitrogen 43.0 mg/dl (6-23); Calcium 9.2 mg/dl (8.6-10.3); Carbon Dioxide 26.0 mmol/L (21-32); Chloride 103.0 mmol/L (98-107); Creatinine Clr Calc Pharmacy 35.0 ml/min; Glucose 119.0 mg/dl (70-99(Fasting)); Magnesium 2.2 mg/dl (1.7-2.4); Potassium 3.9 mmol/L (3.5-5.1); Sodium 138.0 mmol/L (136-145)
[2025-01-19 05:47] LABS: INR 1.3 (0.9-1.1); Prothrombin Time 13.4 Seconds (9.0-12.0)
[2025-01-19] MEDS: WARFARIN SOD 4 MG TAB PO ONE (08:19)
[2025-01-19 08:29] VITALS: BP 127/80; RESP 20; TEMP 97.9; O2SAT 93
--- NOTE | 2025-01-19 09:17 | Discharge Summary ---
Date of Service January 19, 2025 Admission HPI Per Admitting Provider Patient is a 75 year old F with a past medical history of SVT, mitral regurg, severe calcific aortic stenosis s/p AVR in 2016 on anticoagulation, pulmonary hypertension, ASHLEY, DM Type II non-insulin dependent, CHD Stg III, HLD, seizure d/o, right breast carcinoma w/ mets, s/p lumpectomy and chemo current remission, presenting with shortness of breath since Tuesday. Patient reports always feeling short of breath, but noticed swelling to her ankles on Tuesday and she became short of breath with minimal exertion. Denies chest pain, no cough. She doubled her torsemide dose yesterday with no relief of symptoms. Denies fever, chills, weight loss, weakness, headache, cognitive changes, vision/hearing changes, chest pain, urinary concerns, N/V/D, joint swelling/pain, ambulation difficulty, skin rashes, lesions, bleeding, bruising. In the emergency department, patient was hypoxic with oxygen sats in 70's and signs of distress, required 10 LPM via oxymask. VBG- pH 7.37, pCO2 42, PO2 47, HCO3 24, O2 sat 74.6%, Base excess -1.1. Chest Xray showed moderate interstitial pulmonary edema. Small bilateral pleural effusions. BNP elevated at 417. Lasix 40mg given x 1 in ED. Hypoxia improved and the patient was weaned to 5-6 LPM O2 via NC. No evidence of sepsis/infection with WBC 9.06. Patient afebrile. EKG showing NSR vent rate 91 bpm, QTc 496. Mild elevation in renal functioning with Cr 1.44 (baseline 1.5) with stable lytes. As per external chart review, lisinopril and amlodipine dose decreased recdently in setting of mild hyperkalemia. As per external record, h/o CKD III with a recent ELOY following titration of torsemide that revealed mild hyperkalemia (K+ 5.1) and treated with kayexalate OP. Completed treatment on Tuesday. Follows [facility] closely. Last echo from 06/2024 showing LVEF 60-64%, LA severely enlarged. mod- sever MR; AV prosthesis systolic gradients abnormal suggesting moderate obstruction with the rec from Cards this study is unchanged from previous. Patient follows valve clinic for h/o AV replacement in 2016; on anticoagulation with Coumadin. Reportedly, Coumadin added several months ago d/t concern clot forming near prosthetic valve. Mild anemia noted with Hgb 11. Currently on iron supplementation 3x/week. Found to have SHO following initiation of anticoagulation several months ago. She follows Hematology/Oncology due to her history of right breast carcinoma and has received anemia workup OP. History of right breast carcinoma, status post lumpectomy w/ metastatic disease; has received 4 cycles of chemotherapy in 2013. History obtained primarily from the patient and via hospitalization record. External chart review obtained from [facility]. Admission Exam Per Admitting Provider VITALS: Reviewed. WEIGHT/BMI reviewed. GEN: well-developed, + distress PSYCH: Good Judgment. AOx3. Normal memory, mood, and affect. HEENT -Head: NC/AT; -Eyes: PERRL, EOMI. No discharge or redn ess; -Ears: External ears are normal. -Nose: Normal nares. -Mouth and throat: MMM. Normal gums, muc ahsley, palate,. Good dentition. NECK: Supple, with no masses. CV: S1, S2, + murmur, +2 pitting ankle edema, regular rhythm LUNGS: Diminished bilaterally, poor air flow to bases, + crackles, no cough ABD: Soft, NT/ND, NBS, no masses or organomegaly. : minimal output SKIN: Warm, well perfused. No skin rashes or abnormal lesions. MSK: No deformities EXT: No clubbing, cyanosis, or edema. NEURO: CN II-XII grossly intact, Normal muscle strength and tone. No focal deficits. Principal Diagnosis Acute hypoxemic respiratory failure Acute diastolic heart failure due to valvular disease Aortic stenosis UTI Discharge Exam Constitutional: obese elderly F in NAD HEENT: Mucous membranes moist. Lungs: Decreased breath sounds, ctab, no wheezing CV: regular, systolic murmur Abdomen: Soft, nontender, nondistended Extremities: Trace ankle, pretibial edema, improved Neuro: awake, alert, speech fluent, answers appropriately, moves extremities Psych: Cooperative, normal mood Discharge Data Allergies Allergy/AdvReac Type Severity Reaction Status Date / Time Dyazide Allergy Intermediate FACIAL Unverified 12/12/19 10:36 EDEMA hydrochlorothiazide Allergy Intermediate FACIAL Verified 01/14/25 13:42 EDEMA triamterene Allergy Intermediate FACIAL Verified 01/14/25 13:42 EDEMA Fish Containing Products Allergy Mild Hives Verified 01/14/25 13:42 Sulfa (Sulfonamide Allergy Mild ITCHY Verified 01/14/25 13:42 Antibiotics) BLOTCHY simvastatin AdvReac Mild PAIN ALL Verified 01/14/25 13:42 OVER Consultations 01/14/25 13:07 ED Decision to Admit Stat Hospital Course (1) Acute hypoxemic respiratory failure: (2) Acute diastolic heart failure due to valvular disease: (3) Severe aortic stenosis: (4) Seizure disorder: (5) Hypokalemia: (6) Chronic renal failure (CRF), stage 3b: (7) Sleep apnea: (8) Diabetes mellitus, type 2: Plan (1) Acute hypoxemic respiratory failure: Plan: Patient is a 75 year old F with a past medical history of SVT, mitral regurg, severe calcific aortic stenosis s/p AVR in 2016 on anticoagulation, pulmonary hypertension, ASHLEY, DM Type II non-insulin dependent, CHD Stg III, HLD, seizure d/o, right breast carcinoma w/ mets s/p lumpectomy and chemo now in remission, presenting with shortness of breath since Tuesday. Patient reports always feeling short of breath, but noticed swelling to her ankles on Tuesday and she became short of breath with minimal exertion. Denies chest pain, no cough. She doubled her torsemide dose yesterday with no relief of symptoms. Acute hypoxic respiratory failure 2/2 new onset CHF exacerbation, Aortic stenosis Patient presents acute on chronic heart failure due to valvular dysfunction/aortic stenosis. Has responded well to diuresis. * Chest Xray w/ mod interstitial pulmonary edema; Small B/L pleural effusions; BNP 417 on admit * On IV Furosemide per Cardiology, Holding home torsemide -> now resume torsemide at 30 mg daily * Cardiology consulted , and following closely * Echo 06/2024 showing LVEF 60-64%, LA severely enlarged. mod-sever MR; AV p rosthesis systolic gradients abnormal suggesting moderate obstruction;Current Echo - peak CW velocity across the aortic valve prosthesis on echocardiogram performed at [facility] on 01/14/2025 was 3 m/s as compared to 3.5 m/s at the time of the outpatient echocardiogram within the [facility] system on 07/20/2024. At that time the mean aortic valve prosthetic gradient was 26 mmHg, dimensionless index 0.30. Severe mitral annular calcification was noted at that time with moderate to severe mitral regurgitation, moderate tricuspid regurgitation, and the pulmonary artery systolic pressure was severely elevated, estimated to be 86 mmHg. Ejection fraction on echocardiogram performed yesterday as well as the recent outpatient echocardiogram was normal. * EKG showing NSR vent rate 91 bpm, QTc 496- hold meds with QT prolong * Wean oxygen as able, currently on RA * PT consult ordered - recommend to return home Anemia * Hgb 11, Hct 35, RDW 48; baseline labs * Follows [facility] for anemia- on Iron supplementation 3x/week * Continue home iron * Continue home anticoagulation with warfarin; follows anticoag clinic via [facility] * INR 7.2 -> 1.7 -> 1.3, warfarin 8 mg given this AM, advised pt to take warfarin 4 mg tomorrow and need outpt INR re-check on Tuesday #Hypertension * Managed with triple agents at home- lisinopril, amlodipine, carvedilol * lisinopril, amlodipine now stopped #ASHLEY * Continue home Bipap * Wean O2 as needed to maintain sats >92% UTI UA w/ nitrites, + bacteria Ucultx posit. for Klebsiella Finished treatment w/ ceftriaxone while hospitalized #Diabetes Mellitus Type II (non-insulin dependent) * Most recent A1C 6.3% * SSI while inpatient for Goal BSG 110-140 * Accucheck ACHS #Hyperlipidemia * Controlled w/ last LDL 51 on OP labs * Continue home statin Total Time Total Time Spent Total Time Spent (In Minutes): 40 Discharge Plan Discharge Items Patient Disposition: Home - Self-Care Reason For Visit: SHORTNESS OF BREATH Discharge Diagnosis: Acute hypoxemic respiratory failure Acute diastolic heart failure due to valvular disease Aortic stenosis UTI Condition on Discharge: Fair Activity: Per Instructions section Non-emergency contact: Primary Care Provider and Auto Service Instructor Call non-emergency contact if: you have any medication questions and your symptoms worsen Follow-up/Referrals: Devora Pinto MD [Primary Care Provider] - (Date & Time 01/25/2025 11:00 AM Provider: Devora Pinto MD Family Medicine [facility] ) Diet: Carb Count or DM1 and Heart Healthy Addtl Attending Provider Instructions: Follow up with your primary care doctor and medical device sales consultant. Follow up with your scheduled appointment with cardiology on Tuesday at [facility]. Take torsemide 30 mg daily (instead of 20 mg). Stop taking amlodipine and lisinopril. Tomorrow take warfarin 4 mg and have your INR re-checked on Tuesday. Follow up with anticoagulation clinic regarding your INR and warfarin dose. Addtl Range Rider Provider Instructions: Call your Primary Care doctor if any of the following symptoms or problems start or get worse: * Shortness of breath or difficulty breathing * Wake up at night short of breath * Chest pain * Cough * Swelling of your hands, feet, or legs * More fatigued or tired with your normal activity * Palpitations - sudden fast heart beats WEIGHT * Weigh yourself every morning after using the bathroom. * Use the same scale. * Wear the same amount of clothing. * Write your weight down on a chart. * Call your Primary Care doctor if you gain more than 2-3 pounds in 1-2 days. MEDICATIONS * Use this discharge instruction sheet for medication instructions. * Take your medications at the time your doctor ordered. * Do not skip a dose of your medicines. * If you miss a dose of medicine, take it as soon as possible, but DO NOT DOUBLE A DOSE. * Read your medicine information when you get home. * Know all of the side effects of your medicine. If in doubt, ask your pharmacist * Call your Primary Care doctor's office if you have any side effects. * Be sure all of your doctors know what medicine and herbs you take (including cold, flu, and herbal medicine). Take the following with you to your follow-up doctor appointments: * Weight Chart * Medication List * List of questions Do not drink excessive alcohol, beer or wine. Pending Studies at Discharge: No Stand-Alone Forms: [facility], Smoking Cessation Medications and DC Order Prescriptions: New torsemide 10 mg Tablet 30 mg PO QAM Qty: 60 0RF Continued atorvastatin 10 mg Tablet 10 mg PO HS gabapentin 400 mg Capsule 400 mg PO TID cyanocobalamin (vitamin B-12) 1,000 mcg Tablet, Sublingual 1,000 mcg SUBLINGUAL HS turmeric 400 mg Capsule 500 mg PO DAILY metformin 500 mg tablet 500 mg PO BIDWMEAL carvedilol 12.5 mg tablet 12.5 mg PO BID alendronate 70 mg tablet 70 mg PO WK Rx Instructions: Take on Mondays aspirin 81 mg Tablet,Delayed Release (Dr/Ec) 81 mg PO DAILY warfarin 4 mg tablet 8 mg PO 3XWK Rx Instructions: Take 8mg by mouth Mon/Wed/Fri in the evenings warfarin 4 mg tablet 4 mg PO 4XWK Rx Instructions: Take 4mg by mouth Tue///Sat in the evenings ferrous sulfate 325 mg (65 mg iron) tablet 325 mg PO 3XWK Rx Instructions: Mon/Wed/Fri Discontinued lisinopril 20 mg tablet 10 mg PO QAM torsemide 10 mg tablet 20 mg PO QAM amlodipine 5 mg tablet 2.5 mg PO QAM Discharge Orders: Discharge Order- CHF (Routine); Ordered 01/19/25 Ordered By: Jovan Iglesias/Other Patient Handouts: A1C, Managing Type 2 Diabetes Admission Data Admit Date/Time: 01/14/25 14:12 Attending Provider: Jovan Agustin Admit Provider: Esteban Connelly Primary Care Provider: Devora Pinto Other Providers: Ramy Wilkins Robin A.
[2025-01-19 09:48] VITALS: PULSE 67
[2025-01-21] MEDS ORDERED: WARFARIN SOD 4 MG TAB PO SCH (16:00)
== END 2025-01-19 11:23 | disposition home or self-care (01) | DRG 291 ==
LOC: ED 11:45 → EDINP 14:12 → SUATTDRO 14:12 → 2S 16:42 → 2W 01-18 21:11